=== PATIENT | female | born 1995 | race Caucasian/White ===

== ENCOUNTER 2025-06-27 21:19 | Emergency (ER) | payer MEDICAID, SELFPAY ==
--- OUTSIDE RECORDS SUMMARY | 2024-09-06 08:40 | XMS_ITS ---
Author Organization [facility] Address [address] [place] [address] Care Team Providers Care Head Sampler Name Role Phone PCP, Does Not Have a Primary Care Provider Taisha Hurt Unavailable [phone] ALLERGIES No Known Allergies RESULTS Component Value Reference Range Notes Hepatitis Acute Panel - NSLI J Reviewed date:09/09/2024 01:49:03 PM Interpretation:Negative Performing Lab:[facility], [address] [place] [address], Director - [facility] Discharge Coordinator: Devaughn Donovan MD Notes/Report: Hep B Surface Ag Nonreactive Nonreactive Hepatitis A Ab IgM Nonreactive Nonreactive HCV S/CO Ratio 0.08 0.00-0.79 S/CO HCV Interpretation Nonreactive Nonreactive S/CO Ratio Interpretation 0.00 - 0.79 Non-Reactive 0.80 - 0.99 Equivocal >= 1.00 Reactive Non-Reactive: Antibodies to HCV were not detected; does not exclude the possibility of recent exposure to HCV. No further action is needed unless recent infection is expected. Equivocal: Antibodies to HCV may or may not be present. HCV RNA testing will follow to identify current infection. Reactive: Presumptive evidence of antibodies to HCV. HCV RNA testing will follow to identify current infection. Hepatitis B Core IgM Antibodies Nonreactive Nonreactive A = Abnormal, H = High, HH = Critical High, L = Low, LL = Critical Low HIV AG/AB SCREEN BY CMIA - N LUDMILAIJ Reviewed date:09/09/2024 01:48:59 PM Interpretation:Negative Performing Lab:[facility], [address] [place] [address], Director - [facility] Discharge Coordinator: Devaughn Donovan MD Notes/Report: HIV 1,2 AG/AB by CMIA Nonreactive Nonreactive Nonreactive: HIV-1 p24 antigen and HIV-1/HIV-2 antibodies were not detected. Nonreactive results may be due to antigen and/or antibody levels that are below the limit of detection of this assay. Reactive: Presumptive evidence of HIV-1 p24 antigen and/or HIV-1/HIV-2 antibodies. This is a preliminary result. Further confirmatory testing according to the [facility] HIV testing algorithm will follow, and such confirmatory results must be considered in making a diagnosis related to HIV infection. Further HIV tests include HIV-1/HIV-2 antibody differentiation immunoassay and subsequent nucleic acid testing if needed. This result should be interpreted in conjunction with the patient?s clinical presentation, history, and other laboratory results. If the result is inconsistent with clinical evidence, additional testing is suggested to confirm the result. A = Abnormal, H = High, HH = Critical High, L = Low, LL = Critical Low SYPH TITER Reviewed date:09/09/2024 01:48:54 PM Interpretation:Negative Performing Lab:[facility], [address] [place] [address], Director - [facility] Discharge Coordinator: Devaughn Donovan MD Notes/Report: RPR Monitor Test <1:1 <1:1 RPR titer of <1:1 is nonreactive. This test is recommended for monitoring treatment response in individuals with established syphilis. It is also useful for diagnosis of congenital syphilis in neonates born to mothers with syphilis infection. A = Abnormal, H = High, HH = Critical High, L = Low, LL = Critical Low VAGCTNG Reviewed date:09/09/2024 01:48:43 PM Interpretation:Negative Performing Lab:[facility], [address] [place] [address], Director - [facility] Discharge Coordinator: Devaughn Donovan MD Notes/Report: Bacterial vaginosis Not Detected Not Detected Liz species Not Detected Not Detected Liz glabrata Not Detected Not Detected Trichomonas vaginalis Not Detected Not Detected The Va ginitis Panel by NAAT assay utilizes casserole preparer medicated amplification (TMA) for the detection of ribosomal RNA from microorganisms associated with bacterial vaginosis (BV), Liz glabrata, Liz species, and Trichomonas vaginalis. For BV, the assay detects levels of Lactobacillus, Gardnerella vaginalis, and Atopobium vaginae, and qualitatively reports the detection of bacteria vaginosis. For Liz, the assay detects and differentiates between C. glabrata and other Liz species (C. albicans, C. parapsilosis, C. dubliniensis, C. tropicalis). This assay is intended to aid in the diagnosis of vaginosis and/or vaginitis, caused by the targeted microorganisms, and should be interpreted in conjunction with the patient?s other relevant clinical data. Performance has not been evaluated in individuals less than 14 years of age. Chlamydia Amplification Result Not Detected Not Detected The Mieplegic Aptima Combo2 assay on [place] system screens for the presence of Chlamydia trachomatis rRNA using casserole preparer mediated amplification. A Not Detected result does not preclude the possibility of an infection with C. trachomatis. If results are indeterminate, please submit a new specimen. This assay is not intended for the evaluation of suspected sexual abuse or for other medico-legal reasons. The performance of this test has not been evaluated in patients <14 years of age GC Amplification Result Not Detected Not Detected The Mieplegic Aptima Combo2 assay on [place] system screens for the presence of Neisseria gonorrhoeae rRNA using casserole preparer mediated amplification. A Not Detected result does not preclude the possibility of an infection with N. gonorrhoeae. If results are indeterminate, please submit a new specimen. This assay is not intended for the evaluation of suspected sexual abuse or for other medico-legal reasons. The performance of this test has not been evaluated in patients <14 years of age. A = Abnormal, H = High, HH = Critical High, L = Low, LL = Critical Low REASON FOR VISIT OTHER, POSSIBLE STD EXPOSURE, SUMMER WAS + FOR CHALYMDIA MEDICATIONS Medication SIG (Take, Route, Frequency, Duration) Notes Start Date End Date Status Fluoxetine Active VITAL SIGNS Temperature 97.6 degrees Fahrenheit 09/07/19 25 Heart Rate 86 /min 09/06/2024 Blood pressure systolic 106 mm Hg 09/07/19 25 Blood pressure diastolic 78 mm Hg 025 Respiratory Rate 16 /min 09/06/2024 Oximetry 97 % 09/06/2024 Height 5ft in 09/06/2024 Weight 110 lbs 09/06/2024 BMI 21.48 kg/m2 09/06/2024 PROCEDURES Procedure Date Ordered Date Performed Result Body Sit e Venipuncture 09/06/2024 09/06/2024 N/A Encounters Encounter Location Date Provider Diagnosis [facility] - [address] [address] 09/06/2024 Taisha Payne Sexually transmitted disease exposure Z20.2 ASSESSMENTS Encounter Date Diagnosis Assessment Notes Treatment Notes Treatment Clinical Notes Section Notes 09/06/2024 Sexually transmitted disease exposure (ICD-10 - Z20.2) Patinet was offered Ceftriaxone injection, declines at this time, discussed benefits vs risk, unsue if there was a true exposure, wants to wait, discussed abstinence for 4 weeks, if this test negative then should do a repeat in 2 weeks. If symptoms please return for treatment. PLAN OF TREATMENT No Information Procedure Notes * Category Sub-Category Detail Notes GH - Venipuncture Venipuncture: 21 g butterfly placed at , Left , AC , number of attempts: 1 , lab [facility] to [facility] , Blood was drawn using standard precautions/technique to ensure cleanliness and hemostasis acheived with temporary pressure dressing/bandaid , patient tolerated procedure well and denies any other complaints Consent: Verbal consent obtai cyndy Performed By: SHANT URENA MA Patient Disposition: Patient tolerated p rocedure well Progress Notes * Examination Category Sub-Category Detail Notes Category Not es [facility] Exams GENERAL: no acute distres s, well developed, well nourished, afebrile, LUNGS: No respiratory distr ess GENITOURINARY: , Offered exam, cadence ent declined, self swabbed PSYCHIATRIC: Interactive, convers ant, Affect normal, alert and oriented SKIN no rash on visible s kin History and Physical Notes * HPI (History of Present Illness) Category Sub-Category Detail Notes Category Not es STD-Concern reason for visit possible STD ex posure, partner tested positive for Gonorrhea but usnure if there was exposure. Prior STD chlamydia in the sum ammy Number of sexual contacts multiple 2 mal es, using condoms Condom use admits intermittent use HIV status in the fall Sexual contact portal heterosexual, daniel dave
--- OUTSIDE RECORDS SUMMARY | 2024-09-09 08:47 | XMS_ITS ---
Author Organization [facility] Address [address] [place] [address] Care Team Providers Care Wire Insulator Name Role Phone PCP, Does Not Have a Primary Care Provider Unava ilNereyda Junior Unavailable [phone] REASON FOR VISIT cc/results Encounters Encounter Location Date Provider Diagnosis [facility] [address] [place] [address] 09/09/2024 Nereyda Arce PLAN OF TREATMENT No Information
[2025-06-27 21:28] VITALS: BP 97/66; PULSE 94; RESP 18; TEMP 36.6; O2SAT 98; BMI 20.9
[2025-06-27 21:46] LABS: MANUAL DIFF FLAG NO
[2025-06-27 21:52] LABS: Hematocrit 43.7 % (37.0-47.0); Hemoglobin 14.1 g/dl (12.0-16.0); Imm Gran Abs Auto 0.06 X10*3/uL (0.00-0.03); Imm Gran Pct Auto 0.4 % (0.0-0.4); Lymphocytes Absolute Auto 1.7 X10*3/uL (1.2-4.9); Mean Corpuscular HGB Conc 32.3 g/dl (31.0-35.0); Mean Corpuscular Hemoglobin 27.0 pg (27.0-33.0); Mean Corpuscular Volume 83.7 fL (80.0-98.0); NRBC Abs Auto 0.000 X10*3/uL (0.0-0.012); NRBC Pct Auto 0.0 /100WBC (0.0-0.2); Platelet Count 374 X10*3/uL (160-400); Red Blood Count 5.22 X10*6/uL (4.20-5.50); White Blood Count 15.0 X10*3/uL (4.8-10.8)
[2025-06-27 22:00] LABS: Anion Gap 17 (12-20); Blood Urea Nitrogen 14 mg/dL (9-16); Calcium 9.5 mg/dL (8.4-10.2); Carbon Dioxide 20 mmol/L (22-29); Chloride 104 mmol/L (96-108); Creatinine Clr Calc Pharmacy 71.6; Estimated Glomerular Filt Rate > 60; Potassium 3.3 mmol/L (3.3-5.1); Sodium 138 mmol/L (135-145)
[2025-06-27 22:24] LABS: Resp Syncy Virus RNA Qual PCR NEGATIVE (Negative); SARS COV2 PCR INHOUSE NEGATIVE (Negative)
[2025-06-27 23:28] VITALS: BP 107/69; PULSE 94; RESP 16; TEMP 36.9; O2SAT 99
--- NOTE | 2025-06-27 23:32 | ED.NAVMDI ---
HPI - Nausea/Vomiting/Diarrhea General Chief complaint: Nausea/Vomiting/Diarrhea Stated complaint: N/V Time Seen by Provider: 06/27/25 23:30 History of Present Illness ED Provider: jae HPI Narrative: It's a 30-year-old female who takes two psychiatric medications. She comes in with an abrupt onset of: Nausea Vomiting Diarrhea (no blood in the stool or vomit) Generalized abdominal cramping no underlying IBS, inflammatory bowel disease described. No focal right lower quadrant or right upper quadrant pain. No non-biliary stones. MD elicited complaint: nausea Related Data Previous Rx's ?Medication ?Instructions ?Recorded dicyclomine 10 mg capsule 10 mg PO TID #7 caps 06/28/25 ondansetron 4 mg disintegrating 4 mg PO Q8H PRN nausea and 06/28/25 tablet vomiting #7 tabs Allergies Allergy/AdvReac Type Severity Reaction Status Date / Time No Known Allergies Allergy Verified 06/27/25 21:31 PMFSH Social History Social History Smoked in Last 30 Days: No Use of substances other than those prescribed or required for medical reasons: No Advance Directives: No Do you have a plan to hurt others: No Plan Patient : No Physical Exam Exam: Exam: EXAM: Gen: Alert, awake, well appearing, well hydrated. Head: Atraumatic Eyes: Anicteric, Normal conjunctiva. ENT: Moist mucosa, no pallor. Neck: Supple. Respiratory: Breathing comfortably, No distress.Clear to auscultation bilaterally, symmetric chest expansion, No wheeze, rales, ronchi. Cardiovascular: Regular rate and rhythm. No murmurs or rub. Well perfused periphery, warm extremities. No edema. Abdominal: Soft, no objective distension. No palpable masses or obvious organomegaly. No focal tenderness, no guarding, no rebound tenderness or other peritoneal findings. : No flank tenderness. Neuro: Alert. Gross movement of all extremities intact. Vital signs: See flowsheet Vital Signs: Vital Signs: Last Vital Signs Temp 98.4 F 06/28/25 01:04 Pulse 94 06/28/25 01:04 Resp 16 06/28/25 01:04 BP 107/69 06/28/25 01:04 Pulse Ox 99 06/28/25 01:04 O2 Del Method Room Air 06/28/25 01:04 BMI result Body Mass Index 20.9 Medications Administered Discontinued Medications Generic Name Dose Route Start Last Admin Trade Name Juanq PRN Reason Stop Dose Admin Dicyclomine HCl 10 mg 06/28/25 00:20 06/28/25 00:30 Dicyclomine Hcl 10 Mg Capsule PO 06/28/25 00:21 10 mg ONCE ONE Administration Famotidine 20 mg 06/27/25 23:36 06/27/25 23:55 Famotidine/Pf 20 Mg/2 Ml Vial IVPUSH 06/27/25 23:37 20 mg ONCE ONE Administration Sodium Chloride 1,000 mls @ 999 mls/hr 06/27/25 23:45 06/28/25 00:46 Ns IV 06/28/25 00:45 Infused .Q1H1M NANCY Infusion Loperamide HCl 2 mg 06/28/25 00:20 06/28/25 00:30 Loperamide Hcl 2 Mg Capsule PO 06/28/25 00:21 2 mg ONCE ONE Administration Ondansetron HCl 4 mg 06/27/25 23:36 06/27/25 23:55 Ondansetron Hcl 4 Mg/2 Ml Vial IVPUSH 06/27/25 23:37 4 mg ONCE ONE Administration Procedures Ultrasound ED POC Ultrasound: EMERGENCY ULTRASOUND? INTERPRETATION-Limited Abdominal (Biliary)? The study reveals: Impression: NO OF ACUTE BILIARY PATHOLOGY Indication: ABDOMINAL PAIN? Gallbladder: No stones? Anterior Gallbladder Wall: <4mm, No pericholecystic fluid or edema. CBD: NO EVIDENCE OF OBSTRUCTION/DILATION OR VISUALIZED STONE Performed by: Date:Time: CPT: 78664; Reference Codes? https://bit.ly/073d0zA] Medical Decision Making Medical Decision Making MDM Narrative: 30-year-old female with GI symptoms as above, paired, awake, alert, oriented, hemodynamically stable,, no focal tenderness to suggest appendicitis or biliary colic. Yzbcc-li-uqoy ultrasound in the right upper quadrant shows no signs of gallstones or colostestitis. Patient was hydrated, symptomatic relief in the ED appeared. Discharge with Dicyclamine and Antiemetics. PRN Imodium Lab Data [facility] Lab Attestation statement: I reviewed the patient's lab results. 06/27/25 21:42 06/27/25 21:42 Labs: Lab Results 06/27/25 Range/Units 21:42 WBC 15.0 H (4.8-10.8) X10*3/uL RBC 5.22 (4.20-5.50) X10*6/uL Hgb 14.1 (12.0-16.0) g/dl Hct 43.7 (37.0-47.0) % MCV 83.7 (80.0-98.0) fL MCH 27.0 (27.0-33.0) pg MCHC 32.3 (31.0-35.0) g/dl RDW 13.9 (11.0-16.0) % Plt Count 374 (160-400) X10*3/uL MPV 9.9 (9.4-12.3) fL Immature Gran % (Auto) 0.4 (0.0-0.4) % Neut % (Auto) 82.7 H (45-73) % Lymph % (Auto) 11.2 L (20-40) % [place] % (Auto) 4.5 (2-11) % Eos % (Auto) 0.5 (0-4) % Baso % (Auto) 0.7 (0-2) % Lymph # (Auto) 1.7 (1.2-4.9) X10*3/uL [place] # (Auto) 0.7 (0.1-1.2) X10*3/uL Eos # (Auto) 0.1 (0.0-0.4) X10*3/uL Baso # (Auto) 0.1 (0.0-0.2) X10*3/uL Abs Immat Gran (auto) 0.06 H (0.00-0.03) X10*3/uL Absolute Neuts (auto) 12.4 H (2.0-8.3) x10*3/uL Absolute Nucleated RBC 0.000 (0.0-0.012) X10*3/uL Nucleated RBC % (auto) 0.0 (0.0-0.2) /100WBC Sodium 138 (135-145) mmol/L Potassium 3.3 (3.3-5.1) mmol/L Chloride 104 (96-108) mmol/L Carbon Dioxide 20 L (22-29) mmol/L Anion Gap 17 (12-20) BUN 14 (9-16) mg/dL Creatinine 0.84 (0.5-1.4) mg/dL Estim Creat Clear Calc 71.6 Estimated GFR > 60 Random Glucose 121 H (60-115) mg/dL Calcium 9.5 (8.4-10.2) mg/dL Total Bilirubin 0.4 (0.0-1.0) mg/dL Direct Bilirubin 0.1 (0.0-0.5) mg/dL AST 30 (5-31) U/L ALT 12 (0-31) U/L Alkaline Phosphatase 63 (39-117) U/L Total Protein 7.9 (6.5-8.0) g/dL Albumin 4.6 (3.5-5.0) g/dL Lipase 22 (8-78) U/L Influenza Type A (PCR) NEGATIVE (Negative) Influenza Type B (PCR) NEGATIVE (Negative) RSV RNA Qual (PCR) NEGATIVE (Negative) SARS-CoV-2 RNA (RT-PCR) NEGATIVE (Negative) Discharge Plan Discharge Clinical Impression: Gastroenteritis Patient Disposition: Home, Self-Care Instructions: Acute Nausea and Vomiting (DC) Additional Instructions: DISCHARGE DIAGNOSES: Nausea vomiting and diarrhea abrupt onset unclear cause HISTORY OF PRESENTATION: ?Nausea vomiting diarrhea EMERGENCY DEPARTMENT COURSE,TESTS, TREATMENTS: While in the ED today you had intravenous fluids lab work including kidney function liver function electrolytes blood counts all normal you received intravenous Zofran nausea medication and famotidine and antacid medication DISCHARGE MEDICATIONS: ?We have prescribed Zofran nausea medicine to be taken as needed for nausea. We have also prescribed Bentyl medication for abdominal spasm and cramp pain to be taken as needed. You can take [id number] Imodium and famotidine. FOLLOW-UP: ?Call your primary or general physician soon as possible to discuss your symptoms, your ED visit and to discuss follow up plans INSTRUCTIONS ?& RETURN PRECAUTIONS: If any symptoms change first call your primary physician, if it is after-hours your primary doctors office should have a provider distribution spec you can speak with. If the symptoms are severe or very concerning to you then call 911 or return to the ED. Rakan Terry MD Emergency Physician [facility] Prescriptions: New ondansetron 4 mg tablet,disintegrating 4 mg PO Q8H PRN (Reason: nausea and vomiting) Qty: 7 0RF dicyclomine 10 mg capsule 10 mg PO TID Qty: 7 0RF Interventions: ED Discharge Assessment Last Done: 06/28/25 01:04 Discharge Date/Time: 06/28/25 01:04 Print Language: Gibraltarian
[2025-06-27 23:47] LABS: Alanine Aminotransferase 12 U/L (0-31); Albumin Level 4.6 g/dL (3.5-5.0); Alkaline Phosphatase 63 U/L (39-117); Aspartate Amino Transferase 30 U/L (5-31); Lipase 22 U/L (8-78); Total Protein 7.9 g/dL (6.5-8.0)
--- OUTSIDE RECORDS SUMMARY | 2025-06-28 00:03 | XMS_ITS | Clinical Summary ---
Author Organization [facility] Address [address] [place] [phone] Phone Care Team Providers Care Rate Marker Name Role Phone Unavailable Primary Care Provider Unavailabl e Allergies No known active allergies Medications levonorgestrel- ethinyl estradiol 0.1-20 MG-MCG per tablet 12/11/2017 Active FLUoxetine 10 MG capsuleIndicati ons:Mild single current episode of major depressive disorder Take 1 capsule (10 mg total) by mouth every morning. 90 capsule 1 03/06/2018 Active FLUoxetine 20 MG capsuleIndicati ons:Mild single current episode of major depressive disorder Take 1 capsule (20 mg total) by mouth every morning. 90 capsule 1 03/06/2018 Active Active Problems Problem Noted Date Diagnosed Date Acne vulgaris 07/15/2017 Overview (07/15/2017): Uses tretinoin 0.025% cream and clinda/BP gel 1%/5% Menorrhagia with regular cycle 07/15/2017 Overview (07/15/2017): On OCPs with good control Depression 12/17/2016 Overview (01/03/2018): Noted first in May 2016 at [facility]...started prozac and told parents finally in October 2016...then started contacting me more regularly; refusing therapy; two semesters abroad in 2017-18[place] and [place]. Using prozac 30 mg Immunizations Immunization Administration Dates Next Due DTP 09/30/1998, 8,1997,04/18 DTaP 5 03/08/2002 HPV, Quadrivalent 08/31/2011,04/09/2011,01/30/20 11 Hep A, ped/adol 02/27/2014,01/29/2011 Hep B, ped/adol 1997,1997,1997 Hib (PRP-T) 05/23/1998, 8,1997,04/18 IPV 03/08/2002 Influenza, injectable, quadr ivalent, preservative free 07/15/2017,03/05/2016,02/28/2015 Influenza, injectable, trivalent 03/14/2009,06/03 MMR 03/08/2002,1998 Meningococcal B Trumenba 07/15/2017 Meningococcal Conj (Menactra) MCV4P 12/25/2014,0 08/26/2008 OPV 1997,1997,1997 Tdap 08/26/2008 Varicella 08/26/2008,05/23/1998 Family History Medical History Relation Name Comments Allergies Father bees Hyperlipidemia Father Thyroid disease Father Anemia Mother Cintia No Known Problems Sister Relation Name Status Comments Father Alive Maternal Grandfather Materna l grandfather: Cancer - skin , lung Mother Cintia Alive Other No family histo ry of Thrombophilia Paternal Grandmother Paterna l aunt: Cancer, ovarian, Seizure disorder Sister Alive Social History Tobacco Use Types Packs/Day Years Used Date Smoking Tobacco: Never Smokeless Tobacco: Never Comments:Never smoker Alcohol Use Standard Drinks/Week Comments Yes 0 (1 standard drink = 0.6 oz pur e alcohol) occ drinks a bunch Comments Unknown Sex and Gender Information Value Date Recorded Sex Assigned at Not on file Legal Sex Female 5:25 PM EDT Gender Identity Not on file Sexual Orientation Not on file Last Filed Vital Signs Vital Sign Reading Time Taken Comments Blood Pressure 99/68 01/03/2018 2:25 PM EDT Pulse 90 01/03/2018 2:25 PM EDT Temperature 36.8 C (98.2 F) 10/15/2016 12:00 AM EDT Respiratory Rate - - Oxygen Saturation - - Inhaled Oxygen Concentration - - Weight 47.5 kg (104 lb 12.8 oz) 01/03/2018 2:25 PM EDT Height 154.9 cm (5' 1 ) 07/15/2017 2:22 PM EST Body Mass Index 19.8 07/15/2017 2:22 PM EST Plan of Treatment Health Maintenance Due Date Last Done Comments Men B Vaccine (2 of 2 - Trumenba SCDM 2-dose series) 01/12/2018 07/15/2017 DTaP,Tdap,and Td Vaccines (7 - Td or Tdap) 08/26/2018 08/26/2008, 03/08/2002, 09/30/1998, Additional history exists Influenza Vaccines (#1) 2025 07/15/19 18, 03/05/2016, 02/28/2015, Additional history exists COVID-19 Vaccine ( season) 2025 Hepatitis B Vaccines Completed 1997, 1997, 1997 HIB Vaccines Completed 05/23/1998, 09/01, 1997, Additional history exists IPV Vaccines Completed 03/08/2002, 09/01, 1997, Additional history exists MMR Vaccines Completed 03/08/2002, 1998 Varicella Vaccines Completed 08/26/2008, 05/23/1998 HPV Vaccines Completed 08/31/2011, 01/2011, 01/29/2011 Hepatitis A Vaccines Completed 02/27/2014, 01/30/20 11 Meningococcal Vaccine Completed 12/25/2014, 009 Pneumococcal Vaccine Aged Out No long er eligible based on patient's age to complete this topic
--- OUTSIDE RECORDS SUMMARY | 2025-06-28 00:03 | XMS_ITS | Patient Health Record ---
Author Organization [facility] Address [address] [place] [address] Care Team Providers Care Digester Hand Name Role Phone PCP, Does Not Have a Primary Care Provider Unasegundo thorntonTaisha Zhang Unavailable [phone] Nereyda Arce Unavailable [phone] ALLERGIES No Known Allergies RESULTS Component Value Reference Range Notes Hepatitis Acute Panel - NSLI J Reviewed date:09/09/2024 01:49:03 PM Interpretation:Negative Performing Lab:[facility], [address] [place] [address], Director - [facility] Aircraft Detail Draftsperson: Devaughn Donovan MD Notes/Report: Hep B Surface [...] LUDMILAIJ Reviewed date:09/09/2024 01:48:59 PM Interpretation:Negative Performing Lab:[facility] [employer] [facility], [address] [place] [id number], Director - [facility] Aircraft Detail Draftsperson: Devaughn Donovan MD Notes/Report: HIV 1,2 AG/AB by CMIA Nonreactive Nonreactive Nonreactive: HIV-1 p24 antigen and HIV-1/HIV-2 antibodies were not detected. Nonreactive results may be due to antigen and/or antibody levels that are below the limit of detection of this assay. Reactive: Presumptive evidence of HIV-1 p24 antigen and/or HIV-1/HIV-2 antibodies. This is a preliminary result. Further confirmatory testing according to the [facility] HIV testing algorithm will follow, and such [...] TITER Reviewed date:09/09/2024 01:48:54 PM Interpretation:Negative Performing Lab:[facility] [facility], [address] [place] [address], Director - [facility] Director: Devaughn Donovan MD Notes/Report: RPR Monitor Test [...] VAGCTNG Reviewed date:09/09/2024 01:48:43 PM Interpretation:Negative Performing Lab:[facility] [facility], [address] [place] [address], Director - [facility] Aircraft Detail Draftsperson: Devaughn Donovan MD Notes/Report: Bacterial vaginosis Not Detected Not Detected Liz species Not Detected Not Detected Liz glabrata Not Detected Not Detected Trichomonas vaginalis Not Detected Not Detected The [place] ginitis Panel by NAAT assay utilizes landman medicated amplification (TMA) for the detection of [...] Amplification Result Not Detected Not Detected The [employer] Aptima Combo2 assay on [employer] system screens for the presence of Chlamydia trachomatis rRNA using landman mediated amplification. A Not Detected result does [...] Amplification Result Not Detected Not Detected The [employer] Aptima Combo2 assay on [employer] system screens for the presence of Neisseria gonorrhoeae rRNA using landman mediated amplification. A Not Detected result does [...] Low, LL = Critical Low REASON FOR REFERRAL No Information MEDICATIONS Medication SIG (Take, Route, Frequency, Duration) Notes Start Date End Date Status Fluoxetine Active VITAL SIGNS Heart Rate 86 /min 09/06/2024 Temperature 97.6 degrees Fahrenheit 09/06/2024 Respiratory Rate 16 /min 09/06/2024 Oximetry 97 % 09/06/2024 Blood pressure diastolic 78 mm Hg 09/06/2024 Height 5ft in 09/06/2024 Blood pressure systolic 106 mm Hg 09/06/2024 Weight 110 lbs 09/06/2024 BMI 21.48 kg/m2 09/06/2024 PROCEDURES Procedure Date Ordered Date Performed Result Body Sit e Venipuncture 09/06/2024 09/06/2024 N/A Encounters Encounter Location Date Provider Diagnosis [facility] [address] [place] [address] 09/06/2024 Taisha Payne Sexually transmitted disease exposure Z20.2 [facility] [address] [place] [address] 09/09/2024 Nereyda Arce ASSESSMENTS Encounter Date Diagnosis Assessment Notes Treatment [...] for treatment. PLAN OF TREATMENT No Information Insurance Providers Payer Name Payer Address Payer Phone Subscriber Number Group Number Insured Name Patient Relationship to Insured Coverage Start Date Coverage End Date [facility] [address] [place] [address] [id number] SAMUEL VALLE Self - patient is the insured MEDICAL (GENERAL) HISTORY Medical History History ICD Code aniexty depression
--- OUTSIDE RECORDS SUMMARY | 2025-06-28 00:03 | XMS_ITS | Continuity of Care Document ---
Author Organization [facility] Providers, [facility] Address [address] [place] [address] Care Team Providers Care Vault Installer Name Role Phone RAISSA DUMAS Primary Care Provider Assessment No assessment recorded. Plan of Treatment Reminders Order Date Submit Date Provider Last Modified By Organization Details Last Modified Time Details Appointments None recorded. Lab CBC w/ auto diff 2024 ENID [facility]anion [facility], [address] [place] [address], [place], [address], 13:56:18 ferritin, serum or plasma 2024 025 [facility], [address] [place] [address], [place], [address], 13:56:19 iron + total iron-bindin g capacity (TIBC), serum 2024 025 [facility], [address], [facility], [place], [address], 13:56:19 hepatitis C Ab, signal-to-c utoff, serum or plasma 2024 025 [facility], [address], [facility], [place], [address], 13:56:13 HIV 1+2 AB + HIV 1 p24 Ag, qualitative immunoassay , serum 2024 [facility], [address], [place], [address], 13:56:20 CT + NG RNA, PCR, unspecified specimen 2024 [facility], [address] [place] [address], [place], [address], 13:56:21 unlisted lab - trichomonas vaginalis 2024 [facility], [address] [place] [address], [place], [address], 13:56:21 treponema pallidum igg+igm Ab, serum 2024 [facility], [address] [place] [address], [place], [address], 13:56:14 HBsAg (hepatitis B surface Ag), serum 2024 [facility], [address] [place] [address], [place], [address], 13:56:14 CMP, serum or plasma 2024 [facility], [address] [place] [address], [place], [address], 13:56:15 hemoglobin A1C/hemoglo bin total, QN, blood 2024 [facility], [address] [place] [address], [place], [address], 13:56:15 lipid panel, blood 2024 [facility], [address] [place] [address], [facility], [place], [address], 13:56:16 hepatitis B surface Ab, qualitative , serum 2024 [facility], [address] [place] [address], [place], [address], 13:56:17 TSH, serum or plasma 2024 [facility], [address] [place] [address], [place], [address], 13:56:17 hepatitis B core Ab, total, serum 2024 [facility], [address] [place] [address], [place], [address], 13:56:18 Referral None recorded. Procedures None recorded. Surgeries None recorded. Imaging None recorded. Medication Orders fluoxetine 40 mg capsule 2024 [facility], [address] [place] [address], [address], 13:56:28 Patient TargetsNo targets recorded. Patient InstructionsNo instructions recorded. Reason for Referral None Reported. Results Created Date Observation Date Name Description Value Unit Range Abnormal Flag Note LastModifiedBy Organization Detail LastModifiedTime 04/08/2004/09/2025 HEPAT ITIS C AB HCV S/co ratio 0.06 S/co 0.00-0 .79 normal Not Available [address], [place], [address], 04/10/2025 13:56:13 04/08/2004/09/2025 HEPAT ITIS C AB HCV interpretati on NONREA CTIVE nonrea ctive normal S/CO Ratio Inter preta tion 0.00 - 0.79 Non-R eacti ve 0.80 - 0.99 Equiv ocal >= 1.00 React gillian Non-R eacti ve: Antib odies to HCV were not detec betzaida; does not exclu de the possi bilit y of recen t expos ure to HCV. No furth er actio n is neede d unles s recen t infec tion is expec betzaida. Equiv ocal: Antib odies to HCV may or may not be prese nt. HCV RNA testi ng will follo w to ident lucy curre nt infec tion. React gillian: Presu mptiv e evide nce of antib odies to HCV. HCV RNA testi ng will follo w to ident lucy curre nt infec tion. Not Available [address], [address], 04/10/2025 13:56:13 04/08/2004/09/2025 HEP B SURFA CE ANTIG EN hep B surface Ag NONREA CTIVE nonrea ctive normal Not Available [address], [address], 04/10/2025 13:56:14 04/08/2004/09/2025 SYPHI LIS SCREE N treponema pallidum Ab clia NEGATI VE negati ve normal This is the recom aaron d initi al scree vicente test for syphi lis follo wing the rever se-se quenc e algor ithm. Negat gillian: No serol ogic evide nce of Trepo nema palli dum antib odies . No follo w-up is neces viri unles s clini juventino indic ated (e.g. , incub ating or early prima ry infec tion) . Posit gillian: Detec table prese nce of Trepo nema palli dum antib odies . Addit ional testi ng accor ding to the rever se-se quenc e syphi lis scree vicente algor ithm will follo w and must be consi dered befor e la g a final diagn osis. This inclu mervat a nontr epone mal antib caro test (i.e. , RPR with refle x to RPR titer if react gillian). React gillian RPR indic ates serol ogic evide nce of new, inade quate ly treat ed, or persi stent syphi lis infec tion. If RPR is non-r eacti ve, a secon d trepo nemal antib caro test will be perfo rmed. Not Available [address], [address], 04/10/2025 13:56:14 04/08/20 25 04/09/2025 COMPR EHENS GILLIAN METAB OLIC PANEL sodium 138 mmol/ L 135-14 5 normal Not Available [address], [address], 04/10/2025 13:56:15 04/08/20 25 04/09/2025 COMPR EHENS GILLIAN METAB OLIC PANEL potassium 4.5 mmol/ L 3.5-5. 3 normal Not Available [address], [address], 04/10/2025 13:56:15 04/08/20 25 04/09/2025 COMPR EHENS GILLIAN METAB OLIC PANEL chloride 104 mmol/ L 96-108 normal Not Available [address], [address], 04/10/2025 13:56:15 04/08/20 25 04/09/2025 COMPR EHENS GILLIAN METAB OLIC PANEL CO2 20 mmol/ L 22-31 low Not Available [address], [address], 04/10/2025 13:56:15 04/08/20 25 04/09/2025 COMPR EHENS GILLIAN METAB OLIC PANEL anion gap 14 mmol/ L 5-17 normal Not Available [address], [address], 04/10/2025 13:56:15 04/08/20 04/09/2025 COMPR EHENS GILLIAN METAB OLIC PANEL glucose 83 mg/dL 70-99 normal Not Available [address], [address], 04/10/2025 13:56:15 04/08/20 25 04/09/2025 COMPR EHENS GILLIAN METAB OLIC PANEL BUN 10 mg/dL 7-23 normal Not Available [address], [place], [address], 04/10/2025 13:56:15 04/08/20 25 04/09/2025 COMPR EHENS GILLIAN METAB OLIC PANEL creatinine 0.87 mg/dL 0.50-1 .30 normal Not Available [address], [place], [address], 04/10/2025 13:56:15 04/08/20 25 04/09/2025 COMPR EHENS GILLIAN METAB OLIC PANEL calcium 8.9 mg/dL 8.4-10 .5 normal Not Available [address], [address], 04/10/2025 13:56:15 04/08/20 25 04/09/2025 COMPR EHENS GILLIAN METAB OLIC PANEL total protein 7.0 g/dL 6.0-8. 3 normal Not Available [address], [address], 04/10/2025 13:56:15 04/08/20 25 04/09/2025 COMPR EHENS GILLIAN METAB OLIC PANEL albumin 4.1 g/dL 3.3-5. 0 normal Not Available [address], [address], 04/10/2025 13:56:15 04/08/20 25 04/09/2025 COMPR EHENS GILLIAN METAB OLIC PANEL total bilirubin 0.4 mg/dL 0.2-1. 2 normal Not Available [address], [place], [address], 04/10/2025 13:56:15 04/08/2004/09/2025 COMPR EHENS GILLIAN METAB OLIC PANEL AST (SGOT) 23 U/L 10-35 normal Not Available [address], [address], 04/10/2025 13:56:15 04/08/20 25 04/09/2025 COMPR EHENS GILLIAN METAB OLIC PANEL ALT (SGPT) 8 U/L 10-40 low Not Available [address], [place], [address], 04/10/2025 13:56:15 04/08/20 25 04/09/2025 COMPR EHENS GILLIAN METAB OLIC PANEL alk phos 58 U/L 40-120 normal Not Available [address], [place], [address], 04/10/2025 13:56:15 04/08/2004/09/2025 COMPR EHENS GILLIAN METAB OLIC PANEL eGFR 93 mL/mi n/1.7 3m2 >=60 normal The estim ated glome rular filtr ation rate (eGFR ) calcu latio n is based on the 2020 CKD-E PI creat inine equat ion, which is valid ated in male and femal e popul ation 18 years of age and older (N Engl J Med 2020; 385:1 737-1 749). Not Available [address], [address], 04/10/2025 13:56:15 04/08/20 25 04/09/2025 HEMOG LOBIN A1C HGB A1C 5.4 % 4.0-5. 6 normal Metho d: Immun oassa y Refer ence Range 4.0-5 .6% High risk (pred iabet ic) 5.7-6 .4% Diabe tic, diagn ostic >=6.5 % ADA diabe tic treat ment goal <7.0% The Hemog lobin A1c testi ng is NGSP- certi fied. Refer ence range s are based upon the 2009 recom menda tions of the Ameri can Diabe melo Assoc iatio n. Inter preta tion may vary for child bernard and adole scent s. Not Available [address] [facility], [place], [address], 04/10/2025 13:56:15 04/08/2004/09/2025 HEMOG LOBIN A1C estimated average glucose 108 mg/dL 68-114 normal The Estim ated High View ge Gluco se (eAG) or Mean Plasm a Gluco se (MPG) value is calcu lated from the hemog lobin A1c value and cover s the same time perio d. The Ameri can Diabe melo Assoc iatio n (ADA) and other profe ssion al organ izati ons recom mend repor ting the eAG with the HgbA1 c. Not Available [address], [place], [address], 04/10/2025 13:56:15 04/08/2004/09/2025 LIPID PROFI LE cholesterol 219 mg/dL <=199 high Inter preti ve Comme nt: Optim al Daysi ntrat ion: <200 mg/dL (for adult s) ; <170 mg/dL (for child benrard) Not Available [address] [facility], [place], [address], 04/10/2025 13:56:16 04/08/2004/09/2025 LIPID PROFI LE HDL cholesterol 53 mg/dL >=51 normal Inter preti ve Comme nt: HDL zaynab stero l less than 40 mg/dL in men and less than 50 mg/dL in women is a risk facto r for cardi ovasc ular disea se Not Available [address] [place], [address], 04/10/2025 13:56:16 04/08/2004/09/2025 LIPID PROFI LE triglyceride s 155 mg/dL <=149 high Inter preti ve Comme nt: Optim al Daysi ntrat ion: <150 mg/dL (for adult s) ; < 90 mg/dL (for child bernard) Trigl yceri de daysi ntrat ion can be influ enced when measu red in the non-f astin g state . Not Available [facility] [address] [place], [address], 04/10/2025 13:56:16 04/08/2004/09/2025 LIPID PROFI LE LDL cholesterol (calc) 139 mg/dL <=99 high Optim al LDL Zaynab stero l (LDL- C) All Patie nts: < 100 mg/dL High Risk ASCVD : < 70 mg/dL Very High Risk ASCVD : < 55 mg/dL Consi vonda Famil ial Hyper zaynab stero lemia when LDL-C > 190 mg/dL . The calcu latio n for LDL zaynab stero l is based on the Samps on/NI H equat ion (HERMINIO Cardi ol.;5( 5):54 0-548 . doi:1 0.100 Dionne/walker ramirez io.00 13 Not Available [address], [place], [address], 04/10/2025 13:56:16 04/08/2004/09/2025 LIPID PROFI LE non-HDL cholesterol 166 mg/dL <=129 high Optim al Non-H DL Zaynab stero l (Non- HDL-C ) vary based on ASCVD risk and treat ment goals . All Patie nts: < 130 mg/dL Patie nts at High Risk ASCVD : < 100 mg/dL Patie nts at Very High Risk ASCVD : < 85 mg/dL Consi vonda Famil ial Hyper zaynab stero lemia when Non-H DL-C > 220 mg/dL . Non-H DL zaynab stero l is a mc targe t for cardi ovasc ular risk reduc tion. The sugge sted cutof f point s are based on recom menda tions from the Shanique moreno of Cardi ology /Asher ican Heart Assoc iatio n (ACC/ AHA) guide lines on the manag ement of blood zaynab stero l [Circ ulati on. 2019; 139:e 1082- e1143 ], and 2021 ACC Exper t Conse nsus Decis ion Pathw ay [(J Am Kostas Cardi ol. Apr, 80 (48) 5081- 1162] Not Available [address], [address], 04/10/2025 13:56:16 04/08/2004/09/2025 HEP B SURFA CE AB hep B surface Ab REACTI VE reacti ve normal Not Available [address], [address], 04/10/2025 13:56:17 04/08/2004/09/2025 TSH - THYRO ID STIMU LATIN G HORMO NE TSH 1.68 uIU/m L 0.27-4 .20 normal Not Available [address], [address], 04/10/2025 13:56:17 04/08/2004/09/2025 HEP B CORE AB TOTAL hep B core Ab total NONREA CTIVE nonrea ctive normal Not Available [address], [address], 04/10/2025 13:56:18 04/08/20 25 04/09/2025 CBC WITH AUTO DIFF WBC 6.13 K/uL 3.80-1 0.50 normal Not Available [address], [address], 04/10/2025 13:56:18 04/08/20 25 04/09/2025 CBC WITH AUTO DIFF RBC 4.33 M/uL 3.80-5 .20 normal Not Available [address], [place], [address], 04/10/2025 13:56:18 04/08/20 25 04/09/2025 CBC WITH AUTO DIFF HGB 12.1 g/dL 11.5-1 5.5 normal Not Available [address], [place], [address], 04/10/2025 13:56:18 04/08/20 25 04/09/2025 CBC WITH AUTO DIFF HCT 39.6 % 34.5-4 5.0 normal Not Available [address], [place], [address], 04/10/2025 13:56:18 04/08/20 25 04/09/2025 CBC WITH AUTO DIFF MCV 91.5 fL 80.0-1 00.0 normal Not Available [address], [place], [address], 04/10/2025 13:56:18 04/08/20 25 04/09/2025 CBC WITH AUTO DIFF MCH 27.9 pg 27.0-3 4.0 normal Not Available [address], [place], [address], 04/10/2025 13:56:18 04/08/20 25 04/09/2025 CBC WITH AUTO DIFF MCHC 30.6 g/dL 32.0-3 6.0 low Not Available [address] [facility], [place], [address], 04/10/2025 13:56:18 04/08/20 25 04/09/2025 CBC WITH AUTO DIFF RDW 14.6 % 10.3-1 4.5 high Not Available [address] [facility] [place], [address], 04/10/2025 13:56:18 04/08/20 25 04/09/2025 CBC WITH AUTO DIFF MPV 11.4 fL 7.0-13 .0 normal Not Available [address], [address], 04/10/2025 13:56:18 04/08/20 25 04/09/2025 CBC WITH AUTO DIFF plt 333 K/uL 150-40 0 normal Not Available [address], [place], [address], 04/10/2025 13:56:18 04/08/2004/09/2025 CBC WITH AUTO DIFF auto NRBC 0 /100_ WBCs 0-0 normal Not Available [address], [address], 04/10/2025 13:56:18 04/08/20 25 04/09/2025 CBC WITH AUTO DIFF auto NRBC # 0.00 K/uL 0.00-0 .00 normal Not Available [address], [place], [address], 04/10/2025 13:56:18 04/08/2004/09/2025 CBC WITH AUTO DIFF auto neutrophils % 50.0 % 43.0-7 7.0 normal Diffe renti al perce ntage s must be corre lated with absol danilo numbe rs for clini srinivasa signi fican ce. Not Available [address], [place], [address], 04/10/2025 13:56:18 04/08/20 25 04/09/2025 CBC WITH AUTO DIFF auto lymphocytes % 39.5 % 13.0-4 4.0 normal Not Available [address], [address], 04/10/2025 13:56:18 04/08/20 25 04/09/2025 CBC WITH AUTO DIFF auto monocytes % 5.7 % 2.0-14 .0 normal Not Available [address], [place], [address], 04/10/2025 13:56:18 04/08/20 25 04/09/2025 CBC WITH AUTO DIFF auto eosinophils % 3.6 % 0.0-6. 0 normal Not Available [address], [place], [address], 04/10/2025 13:56:18 04/08/20 25 04/09/2025 CBC WITH AUTO DIFF auto basophils % 1.0 % 0.0-2. 0 normal Not Available [address], [place], [address], 04/10/2025 13:56:18 04/08/20 25 04/09/2025 CBC WITH AUTO DIFF auto immature granulocytes % 0.2 % 0.0-0. 9 normal (Incl udes meta, myelo and promy elocy melo). Mild eleva tions in immat ure granu locyt es may be seen with many infla mmato ry proce sses and pregn jerome; clini srinivasa corre latio n ora sted. Not Available [address], [place], [address], 04/10/2025 13:56:18 04/08/20 25 04/09/2025 CBC WITH AUTO DIFF auto neutrophils # 3.07 K/uL 1.80-7 .40 normal Not Available [address], [place], [address], 04/10/2025 13:56:18 04/08/20 25 04/09/2025 CBC WITH AUTO DIFF auto lymphocytes # 2.42 K/uL 1.00-3 .30 normal Not Available [address], [address], 04/10/2025 13:56:18 04/08/20 04/09/2025 CBC WITH AUTO DIFF auto monocytes # 0.35 K/uL 0.00-0 .90 normal Not Available [address], [address], 04/10/2025 13:56:18 04/08/20 25 04/09/2025 CBC WITH AUTO DIFF auto eosinophils # 0.22 K/uL 0.00-0 .50 normal Not Available [address], [address], 04/10/2025 13:56:18 04/08/20 25 04/09/2025 CBC WITH AUTO DIFF auto basophils # 0.06 K/uL 0.00-0 .20 normal Not Available [address], [address], 04/10/2025 13:56:18 04/08/20 25 04/09/2025 CBC WITH AUTO DIFF auto immature granulocytes # 0.01 K/uL 0.00-0 .07 normal Not Available [address], [address], 04/10/2025 13:56:18 04/08/20 25 04/09/2025 LILI TIN SERUM ferritin 12 NG/mL 15-150 low Not Available [address], [address], 04/10/2025 13:56:19 04/08/2004/09/2025 IRON TIBC PANEL iron 134 ug/dL 30-160 normal Not Available [address], [address], 04/10/2025 13:56:19 04/08/20 25 04/09/2025 IRON TIBC PANEL UIBC 372 ug/dL 110-37 0 high Not Available [address], [address], 04/10/2025 13:56:19 04/08/20 25 04/09/2025 IRON TIBC PANEL TIBC 506 ug/dL 220-43 0 high Not Available [facility] [address], [place], [address], 04/10/2025 13:56:19 04/08/20 25 04/09/2025 IRON TIBC PANEL % saturation, iron 26 % 14-50 normal Not Available [facility] [address], [place], [address], 04/10/2025 13:56:19 04/08/2004/09/2025 HIV AG/AB SCREE N BY CMIA HIV 1,2 Ag/Ab by cmia NONREA CTIVE nonrea ctive normal Nonre activ e: HIV-1 p24 antig en and HIV-1 /HIV- 2 antib odies were not detec betzaida. Nonre activ e resul ts may be due to antig en and/o r antib caro level s that are below the limit of detec tion of this assay . React gillian: Presu mptiv e evide nce of HIV-1 p24 antig en and/o r HIV-1 /HIV- 2 antib odies . This is a preli minar y resul t. [facility] confi rmato ry testi ng accor ding to the [facility] HIV testi ng algor ithm will follo w, and such confi rmato ry resul ts must be consi dered in makin g a diagn osis relat ed to HIV infec tion. [facility] er HIV tests inclu de HIV-1 /HIV- 2 antib caro diffe renti ation immun oassa y and subse quent nucle ic acid testi ng if neede d. This resul t shoul d be inter prete d in conju nctio n with the patie nti?? s clini srinivasa prese ntati on, histo ry, and other labor atory resul ts. If the resul t is incon siste nt with clini srinivasa evide nce, addit ional testi ng is sugge sted to confi rm the resul t. Not Available [facility] [address], [place], [address], 04/10/2025 13:56:20 04/08/20 25 04/10/2025 TRICH OMONA S VAGIN DELPHINE source amplificatio n URINE normal The clini srinivasa signi fican ce of posit gillian resul ts shoul d be consi dered in conju nctio n with the overa ll clini srinivasa prese ntati on of the patie nt. Resul t is not inten ded to be used as the sole means for clini srinivasa diagn osis or patie nt manag ement decis ions. Not Available [facility] [address], [place], [address], 04/10/2025 13:56:21 04/08/20 25 04/10/2025 TRICH OMONA S VAGIN DELPHINE trichomonas vaginalis amp result NOT DETECT ED not detect ed normal The Holog ic Aptim a Trich omona s vagin delphine Assay on Panth er syste m scree ns for Trich omona s vagin delphine rRNA using trans cript ion media betzaida ampli ficat ion. The resul ts of this test shoul d be inter prete d with consi derat ion of all clini srinivasa and labor atory findi ngs. A Not Detec betzaida resul t does not precl ude the possi bilit y of infec tion with Trich omona s vagin delphine. If indet ermin ate, pleas e submi t a new speci men. This assay is not inten ded for the evalu ation of suspe cted sexua l abuse or for other medic o-leg al reaso ns. The perfo rmanc e of this test has not been evalu ated in patie nts <14 years of age. Not Available [facility] [address], [place], [address], 04/10/2025 13:56:21 04/08/20 25 04/10/2025 CHLAM ROD/ Rachna. AMPLI FICAT ION source amplificatio n URINE normal The clini srinivasa signi fican ce of posit gillian resul ts shoul d be consi dered in conju nctio n with the overa ll clini srinivasa prese ntati on of the patie nt. Resul t is not inten ded to be used as the sole means for clini srinivasa diagn osis or patie nt manag ement decis ions. Not Available [address], [address], 04/10/2025 13:56:21 04/08/20 25 04/10/2025 CHLAM YDIA/ G.C. AMPLI FICAT ION chlamydia amplificatio n result NOT DETECT ED not detect ed normal The Holog ic Aptim a Combo 2 assay on Panth er syste m scree ns for the prese nce of Chlam ydia trach omati s rRNA using trans cript ion media betzaida ampli ficat ion. A Not Detec betzaida resul t does not precl ude the possi bilit y of an infec tion with C. trach omati s. If resul ts are indet ermin ate, pleas e submi t a new speci men. This assay is not inten ded for the evalu ation of suspe cted sexua l abuse or for other medic o-leg al reaso ns. The perfo rmanc e of this test has not been evalu ated in patie nts <14 years of age Not Available [address], [place], [address], 04/10/2025 13:56:21 04/08/20 25 04/10/2025 CHLAM YDIA/ G.C. AMPLI FICAT ION GC amplificatio n result NOT DETECT ED not detect ed normal The Holog ic Aptim a Combo 2 assay on Panth er syste m scree ns for the prese nce of Neiss eria gonor rhoea e rRNA using trans cript ion media betzaida ampli ficat ion. A Not Detec betzaida resul t does not precl ude the possi bilit y of an infec tion with N. gonor rhoea e. If resul ts are indet ermin ate, pleas e submi t a new speci men. This assay is not inten ded for the evalu ation of suspe cted sexua l abuse or for other medic o-leg al reaso ns. The perfo rmanc e of this test has not been evalu ated in patie nts <14 years of age. Not Available [facility] [address], [place], [address], 04/10/2025 13:56:21 Result Notes None recorded. Problems Name Problem SNOMED Code Status Onset Date Resolution Date Notes Provider Name and Address Organization Details Recorded Time Anxiety [id number] Active Bruno gandara [facility] Providers 09:12:39 Depressive disorder 97236284 [facility] Problem Notes None recorded. Medical Equipment None Reported. Allergies No known drug allergies Medications Name Sig Start Date Stop Date Status Note LastModified by Organization Details LastModified Time fluoxetine 40 mg capsule Take 1 capsule every day by oral route for 30 days. 025 active Not Available Not Available Not Avai lable Diflucan 150 mg tablet Take 1 tablet every day by oral route for 1 day. 024 active Not Available Not Available Not Avai lable Vitals Date Recorded Body height Body mass index (BMI) Body weight Body temperature Oxygen saturation Heart rate Systolic And Diastolic Provider Name and Address Organization Details Last Updated DateTime 5 154.94 cm 20 kg/m2 09659.3 5 g 98 [degF] 98 % 81 /min 105/73 mm[Hg] Azucena Hartley [facility] Providers 5 11:35:36 Social History Question Answer Notes LastModified by Organizat ion Details LastModified Time Tobacco Smoking Status Current Some Day Smoker Bruno gandara [facility] Providers 12/22/2023 09:09:38 What Type Of Diet Are You Following? REGULAR Information n ot available 12/22/2023 How Many Times Per Week Do You Exercise? 3-4 Times Per Week Information not available 12/22/2023 What Was The Date Of Your Most Recent Tobacco Screening? 04/08/2025 [email or web address] Information not available 04/08/2025 What Is Your Relationship Status? Single Information not available 12/22/2023 Are You Sexually Active? Yes Information not available 12/22/2023 Has Tobacco Cessation Counseling Been Provided? No Information not available 12/22/2023 How Many Years Have You Smoked Tobacco? 4 Information not available 12/22/2023 What Contraceptive Method Was Reported At Start Of This Visit? Male Condom Information not available 12/22/2023 Do You Have Any Dietary Restrictions? No Information not available 12/22/2023 Sex: Female Functional Status Question Answer Note LastModified by Organizat ion Details LastModified Time How many times per week do you consume alcohol? Less than 1 time per week Information not available 12/22/2023 Do you use any illicit or recreational drugs? No Information not available 12/22/2023 What is your level of alcohol consumption? Occasional Information not available 12/22/2023 Are you currently employed? Yes Information not available 12/22/2023 What is your status? 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 Moderate Information not available 12/22/2023 Mental Status None recorded. Family History Relationship Description Onset Age of this Age Resolved Age Notes LastModified by Organization Details LastModified Time Paternal Grandmother Malignant neoplasm of uterus Not available 12/21 09:13:53 Paternal Aunt Malignant neoplasm of uterus Not available 12/21 09:13:53 Maternal Grandfather Malignant neoplasm of lung Not available 12/21 09:14:06 Father Disorder of thyroid gland Not available 12/21 09:14:23 Notes:Siblings x 1 alive and well Medical History No medical history recorded. Gynecological HistoryNo gynecological history recorded. Obstetrics History GPAL:G 0 P 0 0 0 0 Immunizations Vaccine Type Date Status Note Provider Lyle walter and Address Organization Details Recorded Time Influenza, MDCK, quadrivalent, PF 04/12/2022 completed Bruno gandara [facility] 12/22/2023 09:11:50 COVID-19, mRNA, LNP-S, PF, 100 mcg/0.5mL dose or 50 mcg/0.25mL dose 09/05/2020 completed Bruno gandara [facility] 12/22/2023 09:11:50 COVID-19, mRNA, LNP-S, PF, 100 mcg/0.5mL dose or 50 mcg/0.25mL dose 10/03/2020 completed Bruno gandara [facility] 12/22/2023 09:11:50 COVID-19, mRNA, LNP-S, PF, 30 mcg/0.3 mL dose 06/18/2021 completed Bruno gandara [facility] 12/22/2023 09:11:50 COVID-19, mRNA, LNP-S, bivalent, PF, 30 mcg/0.3 mL dose 04/12/2022 completed Bruno Oconnor [facility] 12/22/2023 09:11:50 Influenza, split virus, quadrivalent, PF 04/13/2020 completed Bruno Oconnor [facility] 12/22/2023 09:11:50 Tdap 11/28/2024 completed Not Available [facility] 04/08/2025 11:35:20 Influenza, MDCK, trivalent, PF 04/08/2025 completed Azucena gandara [facility] 04/08/2025 11:51:16 Past Encounters Encounter ID Performer Location Encounter Start Date Encounter Closed Date Diagnosis/Indication Diagnosis SNOMED-CT Code Diagnosis ICD10 Code Diagnosis IMO Codes Diagnosis Note Raissa Dumas MD [address] [place] [address] 04/08/2025 11:29:12 04/08/2025 15:54:07 Depressive disorder 26938602 F32.A - follow up psychiatry and therapy- no Suicidal/h omicidal ideations- c/w current medication Administra tion of influenza vaccine 14930683 Z23 flu vaccine administer ed without complicati ons, sterile dressing applied Adult heal th examination 828130754 Z00.00 R53.83 Z23 COVID: recommende dTd: UTDFlu vaccine: done todayOptha lmology: UTDGYN: UTDDental: UTDDerm: ReferredBl ood work ordered. Patient agreed to STD testing including HIV. Venereal d isease screening 477149147 Z11.3 Iron deficiency 06473832 E61.1 9881 Health Concerns Section Related Observation LastModified by Organization Detai ls LastModified Time None Recorded Concern Status LastModified by Organization Details LastModified Time None Recorded Payers Encounter Date Sequence Insurance Name Policy Number Policy Wyman Covered Member ID Wyman Member ID Guarantor Name 04/08/2025 1 [employer]AN 2 [place] ([place]) [id number] Agata Tony [id number] Agata Tony Notes Date Note Type Note Provider Name and Address Organization Details Recorded Time 04/08/2025 text/html presents for annual physical exam. Raissa Dumas MD [address] [place], [address], [facility] Providers 04/08/2025 11:46:52 OBGyn Episode No OBEpisode recorded.
--- OUTSIDE RECORDS SUMMARY | 2025-06-28 00:03 | XMS_ITS | Clinical Summary ---
Author Organization [facility] Address [address] [place], [place] [address] Phone Care Team Providers Care Rn Tele Name Role Phone Pcp, Unknown Primary Care Provider Unavailabl e Social History Tobacco Use Types Packs/Day Years Used Date Smoking Tobacco: Never Assessed Education Answer Date Recorded Are you interested in more education? Not on josue e 10/29/2022 Are you concerned about learning? Not on file 10/29/2022 No 10/29/2022 No 10/29/2022 Digital Access Answer Date Recorded No 11/30/2022 No 11/30/2022 No 11/30/2022 Reliable internet access at home? Not on file 11/30/2022 Device with a working camera? Not on file Comments Unknown Sex and Gender Information Value Date Recorded Sex Assigned at Not on file Legal Sex Female 12:54 PM EDT Gender Identity Not on file Sexual Orientation Not on file Plan of Treatment Not on file Medical Devices Not on file [facility] [address] POS O [place] [address] [place] [id number] [address] [place] [address] HMO [place] [address] [place] [address] [place] POS Care Teams Rn Tele Relationship Specialty Start Date End Date Pcp, Unknown PCP - General 02/14/19 Additional Source Comments The information contained in this document represents components of the legal health record. It is not the complete legal health record.[facility]
--- OUTSIDE RECORDS SUMMARY | 2025-06-28 00:03 | XMS_ITS | Encounter Summary ---
Author Organization [facility] Address [address] [place] [address] Phone Care Team Providers Care Geomagnetician Name Role Phone Nicolás Dee DO Primary Care Provider Unavailabl e Reason for Visit * Reason Comments Medication Refill Encounter Details Date Type Department Care Team ([facility] Contact Info) Description 05/28/2020 Refill [facility] [address] [place] [address] Nicolás Dee DO Anxiety and depression Social History Tobacco Use Types Packs/Day Years Used Date Smoking Tobacco: Some Days Smokeless Tobacco: Current Alcohol Use Standard Drinks/Week Comments Yes 0 (1 standard drink = 0.6 oz pur e alcohol) social Comments Unknown Sex and Gender Information Value Date Recorded Sex Assigned at Not on file Legal Sex Female 10:47 AM EDT Gender Identity Female 10/26/2019 1:24 PM EDT Sexual Orientation Something else 10/26/2019 1: 24 PM EDT documented as of this encounter Plan of Treatment Not on file documented as of this encounter Visit Diagnoses Diagnosis Anxiety and depression documented in this encounter Care Teams Geomagnetician Relationship Specialty Start Date End Date Nicolás Dee DO PCP - General Family Medicine 10/26/19 documented as of this encounter
--- OUTSIDE RECORDS SUMMARY | 2025-06-28 00:03 | XMS_ITS | Encounter Summary ---
Author Organization [facility] Address [address] [address] Phone Care Team Providers Care Mcat Tutor Name Role Phone YuriyVika ronquillo Primary Care Provider Unavailabl e Encounter Details Date Type Department Care Team ([facility] st Contact Info) Description 05/12/2020 [facility] COVID 19 [facility] AFFILIATE Social History Tobacco Use Types Packs/Day Years [...] PM EDT documented as of this encounter Progress Notes * HISTORICAL PROVIDER - 05/12/2020 10:33 PM EST COVID-19 Notification Patient Location: [address] Patient location Patient Name: AGATA ELIZALDE Sex: F : 1995 Attending provider: CAROLANN DOYLE Admitting provider: CAROLANN DOYLE [facility] service: [facility] [employer] [facility] Admission date and time: 05-10-2020 03:13 Discharge date and time: 05-10-2020 03:13 Unit: [facility] Room/bed: / START OF COVID-19 ALERT INFO COVID-19 labOrder^[id number]^SARS-CoV-2, GILBERTO^^2020-05-08 16:50:00^[id number]^VIVEK^CAROLANN COVID-19 labResult^[id number]^^Not Detected^2020-05-10 03:13:00 END OF COVID-19 ALERT INFO Primary Care Physician: [id number] SAYMEH ---- Please log into the [employer] to view more information about this event. documented in this encounter Plan of Treatment Not on file documented as of this encounter Visit Diagnoses Not on filedocumented in this encounter Care Teams Mcat Tutor Relationship Specialty Start Date End Date Vika Dee DO PCP - General Family Medicine 10/26/19 documented as of this encounter
--- OUTSIDE RECORDS SUMMARY | 2025-06-28 00:03 | XMS_ITS | Continuity of Care Document ---
Author Organization [place] - .[facility], [facility] Address [address] [place] [address] Care Team Providers Care Airplane Charter Clerk Name Role Phone RAISSA RODRIGUEZ Primary Care Provider [phone] Assessment No assessment recorded. Plan of Treatment Reminders Order Date Submit Date Provider Last Modified By Organization Details Last Modified Time Details Appointments None recorded. Lab influenza virus A + B + SARS-CoV-2 (COVID19) Ag panel, rapid IA, upper respiratory specimen 2024 025 [facility], [address] [place] [address], [id number], 17:20:42 culture, throat 2024 025 [facility], [facility] [place], [address], 06:38:53 rapid strep group A, throat 2024 025 [facility], [address] [place] [address], [phone], 17:20:42 Referral None recorded. Procedures None recorded. Surgeries None recorded. Imaging None recorded. Medication Orders Cepacol Sore Throat (benzocaine -menthol) 15 mg-3.6 mg lozenges 2024 025 [facility], [address] [place] [address], [address], 05:13:55 ibuprofen 600 mg tablet 2024 025 [facility], [address] [place] [address], [address], 17:20:42 prednisone 50 mg tablet 2024 025 [facility], [address] [place] [address], [address], 05:18:37 Sudafed 30 mg tablet 2024 025 [facility], [address] [place] [address], [address], 05:19:55 Patient TargetsNo targets recorded. Patient Instructions Encounter Date Encounter Id Patient Instructions Last Modified By Organization Details Last Modified Time 06/07/2025 [id number] A healthy lifestyle: care instructions gail Not available 06/07/2025 17:20:42 Thank you for visiting [facility]. We may be calling you to review your lab results or schedule a follow up appointment. The call will be through an automated system which asks you to press a mc to speak with one of our agents. Please be on the lookout for this call and listen to the message in its entirety. You may also view your lab results using the Ask The Doctor phyllis, available in the Phyllis Store and [employer] [email or web address]. First-time phyllis users will need to create an account; please note you l l need to select a login and password for the phyllis versus just using your patient portal login. Your lab results will be posted to the Ask The Doctor phyllis as soon as they r e available. Need a note to excuse you from work or school? You can submit a request online at [email or web address]. We will respond to your request within 2 business days. If you have any questions regarding your visit, our Aftercare department can be reached at [phone]. Our hours are 8 AM 8 PM (Mon F ri), 9 AM 6 PM (Sat S un) Viral Syndrome Your Care Instructions You don't feel well, but it's not clear what's causing it. You may have a viral infection. Viruses cause many illnesses, such as the common cold, influenza, fever, rashes, and the diarrhea, nausea, and vomiting that are often called stomach flu. You may wonder if antibiotic medicines could make you feel better. But antibiotics only treat infections caused by bacteria. They don't work on viruses. The good news is that viral infections usually aren't serious. Most will go away in a few days without medical treatment. In the meantime, there are a few things you can do to make yourself more comfortable. Follow-up care is a mc part of your treatment and safety. Be sure to make and go to all appointments, and call your doctor if you are having problems. It's also a good idea to know your test results and keep a list of the medicines you take. How can you care for yourself at home? Get plenty of rest if you feel tired. Take an sraj-dml-oqmclgx pain medicine if needed, such as acetaminophen (Tylenol), ibuprofen (Advil, Motrin), or naproxen (Aleve). Read and follow all instructions on the label. Be careful when taking faxr-fqe-evexlcd cold or flu medicines and Tylenol at the same time. Many of these medicines have acetaminophen, which is Tylenol. Read the labels to make sure that you are not taking more than the recommended dose. Too much acetaminophen (Tylenol) can be harmful. Drink plenty of fluids, enough so that your urine is light yellow or clear like water. If you have kidney, heart, or liver disease and have to limit fluids, talk with your doctor before you increase the amount of fluids you drink. Stay home from work, school, and other public places while you have a fever. When should you call for help? Call 911 anytime you think you may need emergency care. For example, call if: You have severe trouble breathing. You passed out (lost consciousness). Call your doctor now or seek immediate medical care if: You seem to be getting much sicker. You have a new or higher fever. You have blood in your stools. [email or web address] Not available 06/07/2025 15:35:23 Reason for Referral None Reported. Results Created Date Observation Date Name Description Value Unit Range Abnormal Flag Note LastModifiedBy Organization Detail LastModifiedTime 06/07/20 25 06/10/2025 CULTU RE THROA T culture, throat SEE NOTE abnormal CULTU RE, THROA T Micro Numbe r: [id number] Test Statu s: Final Speci men Sourc e: Not given Speci men Quali ty: Adequ ate Resul t: Moder ate growt h of Group A Strep tococ cus isola betzaida Beta- hemol ytic strep tococ ci are predi ctabl y susce ptibl e to Penic illin and other beta- lacta ms. Susce ptibi lity testi ng not routi ye perfo rmed. Pleas e conta ct the labor atory withi n 3 days if susce ptibi lity testi ng is venkata ed. COMME NT: Danielle l oroph aryng eal veda also prese nt. Not Available [facility] [address] [place], [address], 06/10/2025 06:38:53 06/07/20 25 06/07/2025 rapid strep group A, throa t Group A Strep NEGATI VE Not Available [address], [address], 06/07/2025 15:13:59 06/07/20 25 06/07/2025 influ opal virus A + B + SARS- CoV-2 (COVI D19) Ag panel , rapid IA, upper respi rator y speci men Flu A NEGATI VE Not Available [address], [address], 06/07/2025 15:13:50 06/07/20 25 06/07/2025 influ opal virus A + B + SARS- CoV-2 (COVI D19) Ag panel , rapid IA, upper respi rator y speci men Flu B NEGATI VE Not Available [address], [address], 06/07/2025 15:13:50 06/07/20 25 06/07/2025 influ opal virus A + B + SARS- CoV-2 (COVI D19) Ag panel , rapid IA, upper respi rator y speci men Covid-19 NEGATI VE Not Available [address], [address], 06/07/2025 15:13:50 Result Notes None recorded. Problems Name Problem SNOMED Code Status Onset Date Resolution Date Notes Provider Name and Address Organization Details Recorded Time Streptococcal infectious disease 31899058 Active 2024 Reshma gandara [place] - [facility] 14:39:50 Problem Notes None recorded. Procedures Surgical History Date Name Laterality Status Provider Name and Address Organization Details Recorded Time 11/29/19 . Laceration - Dermabond completed Lars Oneil [facility] 11/28/2024 15:09:59 10/11/19 25 . Venipuncture completed Kishor Troncoso [place] - [facility] 10/10/2024 15:05:59 08/07/19 25 . Venipuncture completed Malika Willis [facility] 08/07/2024 12:42:24 03/14/20 24 . Venipuncture completed Terrie Connors DO [address] [place] [address],[address], [place], [address], [facility] 03/14/2024 13:10:59 Imaging Results None recorded. Procedure Notes None recorded. Medical Equipment None Reported. Allergies No known drug allergies Medications Name Sig Start Date Stop Date Status Note LastModified by Organization Details LastModified Time amoxicilli n 500 mg capsule Take 1 capsule twice a day by oral route as directed for 10 days. 06/27 completed Strep a Not Available Not Available Not Available doxycyclin e hyclate 100 mg capsule Take 1 capsule twice a day by oral route for 7 days. 10/23 completed Not Available Not Available Not Available Pyridium 200 mg tablet Take 1 tablet 3 times a day by oral route for 2 days. 03/14 completed Not Available Not Available Not Available Diflucan 150 mg tablet Take 1 tablet every day by oral route for 1 day. 06/07 completed Not Available Not Available Not Available Macrobid 100 mg capsule Take 1 capsule twice a day by oral route for 7 days. 11/02 completed Not Available Not Available Not Available prednisone 50 mg tablet Take 1 tablet every day by oral route for 3 days. 06/17 completed Not Available Not Available Not Available ibuprofen 600 mg tablet Take 1 tablet every 6 hours by oral route as needed for 14 days. 2024 active Not Available Not Available Not Avai lable Sudafed 30 mg tablet Take 1 tablet every 6 hours by oral route as needed for 5 days. 06/19 completed Not Available Not Available Not Available fluoxetine active Not Available Not Av ailable Not Available fluconazol e 10/23 completed Not Available Not Available Not Available Cepacol Sore Throat (benzocain e-menthol) 15 mg-3.6 mg lozenges Take 1 lozenge as needed by mucous route for 7 days. 06/21 completed Not Available Not Available Not Available Vitals Date Recorded Body height Body mass index (BMI) Body weight Heart rate Body temperature Respiratory rate Oxygen saturation Systolic And Diastolic Provider Name and Address Organization Details Last Updated DateTime 154.94 cm 20.8 kg/m2 30108.1 6 g 73 /min 97.9 [degF] 16 /min 99 % 112/74 mm[Hg] Merissa TRUONG - .[facility] 15:11:31 Social History Question Answer Notes LastModified by Organizat ion Details LastModified Time Tobacco Smoking Status Current Some Day Smoker DIONNE Khanna - .[facility] 05/17/2022 14:47:05 RISK LEVEL - Segmentation Level 1 - Healthy [id number] Information not available 06/10/2022 What Was The Date Of Your Most Recent Tobacco Screening? 10/23/2024 [email or web address] Information not available 10/23/2024 Has Tobacco Cessation Counseling Been Provided? Yes [email or web address] Information not available 05/17/2022 On What Date Was Tobacco Cessation Counseling Provided? 10/23/2024 [email or web address] Information not available 10/23/2024 Sex: Unknown Functional Status None recorded. Mental Status None recorded. Family History Relationship Description Onset Age of this Age Resolved Age Notes LastModified by Organization Details LastModified Time Father No current problems or disability [email or web address] Not available 05/04 14:46:56 Mother No current problems or disability [email or web address] Not available 05/04 14:46:56 Medical History No medical history recorded. Gynecological HistoryNo gynecological history recorded. Obstetrics History GPAL:G 0 P 0 0 0 0 Immunizations Vaccine Type Date Status Note Provider Nam e and Address Organization Details Recorded Time Influenza, split virus, quadrivalent, PF 04/13/2020 completed Not Available [facility] 15:03:33 COVID-19, mRNA, LNP-S, PF, 100 mcg/0.5mL dose or 50 mcg/0.25mL dose 09/05/2020 completed Not Available [facility] 5 15:03:33 COVID-19, mRNA, LNP-S, PF, 100 mcg/0.5mL dose or 50 mcg/0.25mL dose 10/03/2020 completed Not Available [facility] 5 15:03:33 COVID-19, mRNA, LNP-S, PF, 30 mcg/0.3 mL dose 06/18/2021 completed Not Available [facility] 5 15:03:33 Influenza, MDCK, quadrivalent, PF 04/12/2022 completed Not Available [facility] 5 15:03:33 COVID-19, mRNA, LNP-S, bivalent, PF, 30 mcg/0.3 mL dose 04/12/2022 completed Not Available [facility] 15:03:33 Influenza, MDCK, trivalent, PF 04/08/2025 completed Not Available [facility] 2024 15:03:33 Tdap 11/28/2024 completed DIONNE Wyatt - .[facility] 11/28/2024 15:12:15 Past Encounters Encounter ID Performer Location Encounter Start Date Encounter Closed Date Diagnosis/Indication Diagnosis SNOMED-CT Code Diagnosis ICD10 Code Diagnosis IMO Codes Diagnosis Note [id number] Julius Sosa MD [facility] [address] [place] [address] 06/07/2025 14:56:17 06/07/2025 15:36:16 Viral disease 22785583 B34.9 18314 Health Concerns Section Related Observation LastModified by Organization Detai ls LastModified Time None Recorded Concern Status LastModified by Organization Details LastModified Time None Recorded Payers Encounter Date Sequence Insurance Name Policy Number Policy Wyman Covered Member ID Wyman Member ID Guarantor Name 06/07/2025 1 [facility] [id number] Agata Tony [id number] Agata Tony Notes Date Note Type Note Provider Name and Address Organization Details Recorded Time 06/07/2025 text/html Sore throat - cmdReported by PatientHPIFor patient presents with, patient reportssore throat complaint which began yesterday. For pertinent findings, patient reports(+) painful swallowing,(+) swollen glands,(+) sinus congestion, and(+) hoarse voicebut reportsno coughandno shortness of breath.30 y/o F presents with sore throat since yesterday. C/o painful swallowing, swollen glands, sinus pressure, b/l ear pain, headaches, hoarse voice, fever sweats and chills. Denies being around anyone with similar sxs. Reports using Nyquil and Dayquil with mild relief of sxs. Julius Sosa MD [address] [facility],[address], [place], [address], [place] - .[facility] 06/07/2025 18:52:44 OBGyn Episode No OBEpisode recorded.
--- OUTSIDE RECORDS SUMMARY | 2025-06-28 00:03 | XMS_ITS | Encounter Summary ---
Author Organization [facility] Address [address] [address] Phone Care Team Providers Care Smelting Engineer Name Role Phone YuriyVika ronquillo Primary Care Provider Unavailabl e Encounter Details Date Type Department Care Team ([facility] st Contact Info) Description 05/25/[address] [facility] [address] AFFILIATE Social History Tobacco Use Types Packs/Day [...] encounter Progress Notes * HISTORICAL PROVIDER - 05/25/2020 11:41 PM EST COVID-19 Notification Patient Location: [address] Patient location Patient Name: AGATA ELIZALDE Sex: F : 1995 Attending provider: CAROLANN DOYLE Admitting provider: CAROLANN DOYLE [facility] service: [facility] [employer] [facility] Admission date and time: 05-24-2020 11:41 Discharge date and time: 05-24-2020 11:41 Unit: [facility] Room/bed: / START OF COVID-19 ALERT INFO COVID-19 labOrder^[id number]^SARS-CoV-2, GILBERTO^^2020-05-22 10:40:00^[id number]^VIVEK^CAROLANN COVID- labResult^[id number]^^Not Detected^2020-05-24 11:41:00 END OF COVID-19 ALERT INFO Primary Care Physician: [phone] SAYMEH ---- Please log into the [employer] to view more information about this event. documented in this encounter Plan of Treatment Not on file documented as of this encounter Visit Diagnoses Not on filedocumented in this encounter Care Teams Smelting Engineer Relationship Specialty Start Date End Date Vika Dee DO PCP - General Family Medicine 10/26/19 documented as of this encounter
--- OUTSIDE RECORDS SUMMARY | 2025-06-28 00:03 | XMS_ITS | Encounter Summary ---
Author Organization [facility] Address [address] [place], [place] [address] Phone Care Team Providers Care Crochet Machine Operator Name Role Phone Lashawn Johnson MD Primary Care Provider Unavailabl e Encounter Details Date Type Department Care Team (Late st Contact Info) Description 03/08/2013 Documentation [facility] Family Medicine [address] [place] [address] Family Medicine, Physician [address] [place] [address] Social History Tobacco Use Types Packs/Day Years Used Date Smoking Tobacco: Never Assessed Comments Unknown Sex and Gender Information Value Date Recorded Sex Assigned at Not on file Legal Sex Female 5:25 PM EDT Gender Identity Not on file Sexual Orientation Not on file documented as of this encounter Plan of Treatment Not on file documented as of this encounter Visit Diagnoses Not on filedocumented in this encounter Care Teams Crochet Machine Operator Relationship Specialty Start Date End Date Lashawn Johnson MD PCP - General 02/11/17 03/03/18 documented as of this encounter
--- OUTSIDE RECORDS SUMMARY | 2025-06-28 00:03 | XMS_ITS | Encounter Summary ---
Author Organization [facility] Address [address] [place], [place] [id number] Phone Care Team Providers Care Food Products Sales Representative Name Role Phone Lashawn Johnson MD Primary Care Provider Unavailabl e Encounter Details Date Type Department Care Team (Late st Contact Info) Description 07/22/[address] [facility] Family Medicine [address] [place] [address] Family Medicine, Physician [address] [place] [address] Social History Tobacco Use Types Packs/Day Years [...] on filedocumented in this encounter Care Teams Food Products Sales Representative Relationship Specialty Start Date End Date Lashawn Johnson MD PCP - General 02/11/17 03/03/18 documented as of this encounter
--- OUTSIDE RECORDS SUMMARY | 2025-06-28 00:03 | XMS_ITS | Encounter Summary ---
Author Organization [facility] Address [address] [phone] Phone Care Team Providers Care Auto Care Center Manager Name Role Phone YuriyVika ronquillo Primary Care Provider Unavailabl e Encounter Details Date Type Department Care Team ([facility] st Contact Info) Description 02/12/2020 [facility] COVID 19 Alert [facility] Social History Tobacco Use Types Packs/Day [...] encounter Progress Notes * HISTORICAL PROVIDER - 02/12/2020 9:27 PM EDT COVID-19 Notification Patient Location: [address] Patient location Patient Name: AGATA ELIZALDE Sex: F : 1995 Attending provider: , Admitting provider: , Hospital service: [facility] Admission date and time: 02-12-2020 01:35 Discharge date and time: 02-12-2020 01:35 Unit: [facility] Room/bed: / START OF COVID-19 ALERT INFO COVID- labOrder^[id number]^^2020-02-01 00:00:00^^^ COVID-19 labResult^[id number]^^Not detected^2020-02-12 01:35:00 END OF COVID-19 ALERT INFO Primary Care Physician: [id number] SAYMEH ---- Please log into the [employer] to view more information about this event. documented in this encounter Plan of Treatment Not on file documented as of this encounter Visit Diagnoses Not on filedocumented in this encounter Care Teams Auto Care Center Manager Relationship Specialty Start Date End Date Vika Dee DO PCP - General Family Medicine 10/26/19 documented as of this encounter
--- OUTSIDE RECORDS SUMMARY | 2025-06-28 00:04 | XMS_ITS | Encounter Summary ---
Author Organization [facility] Address [address] [place] [phone] Phone Care Team Providers Care Quality Checker Name Role Phone Nicolás Dee Primary Care Provider Unavailabl e Reason for Visit * Reason Onset Date Comments Medication Refill 08/08/2021 Encounter Details Date Type Department Care Team ([facility] Contact Info) Description 08/08/2021 Refill [facility] [address] [place] [id number] Gui Odell MD [address] [place] [address] Anxiety and depression Social History Tobacco Use Types Packs/Day Years Used Date Smoking Tobacco: Some Days Smokeless Tobacco: Current Alcohol Use Standard Drinks/Week Comments Yes 0 (1 standard drink = 0.6 oz pur e alcohol) social Health Literacy Answer Date Recorded Trouble understanding healthcare information Not on file 12/02/2020 Inadequate Housing Answer Date Recorded Type of residence: Not on file 12/02/2020 Do you worry about losing your housing? Not on f ile 12/02/2020 Within the past 12 months, h ave you or the family members you live with been unable to get heat, electricity, or water when it was really needed? Not on file 12/02/2020 Comments Not on file 12/02/2020 Medication Challenges Answer Date Recor ded Medication Challenges Not on file 12/02/2020 Medication Challenges Types Not on file 07/2020 Medication Challenges - Other reasons Not on josue e 12/02/2020 Comments Unknown Sex and Gender Information Value [...] depression documented in this encounter Care Teams Quality Checker Relationship Specialty Start Date End Date Nicolás Dee DO PCP - General Family Medicine 10/26/19 documented as of this encounter
--- OUTSIDE RECORDS SUMMARY | 2025-06-28 00:04 | XMS_ITS | Data Portability ---
Author Organization [place] - .[facility], [facility] Address [address] [place] [address] Care Team Providers Care Review Rn Name Role Phone RAISSA RODRIGUEZ Primary Care Provider [phone] Assessment No assessment recorded. Plan of Treatment Reminders Order Date Submit Date Provider Last Modified By Organization Details Last Modified Time Details Appointments None record ed. Lab influe nza virus A + B + SARS-C oV-2 (COVID 19) Ag panel, rapid IA, upper respir atory specim en 2024 025 [facility] [address], [address], 17:20:42 cultur e, throat 2024 025 [facility], [address] [place] [address], [address], 06:38:53 rapid strep group A, throat 2024 025 [facility] [place], [address] [place] [address], [address], 5 17:20:42 cultur e, urine 2024 025 [facility], [address] [place] [address], [address], 5 03:15:04 pregna ncy test, urine 2024 025 [facility] [address] [place] [address], [id number], 5 17:55:52 urinal ysis, dipsti ck, auto 2024 025 [facility], [address] [place] [address], [address], 5 17:55:52 cultur e, urine 2024 025 [facility], [address] [place] [address], [address], 5 06:22:07 urinal ysis, dipsti ck, auto 2024 025 [facility], [address] [place] [address], [phone], 5 09:34:52 pregna ncy test, urine 2024 025 [facility], [address] [place] [address], [address], 5 09:34:52 chlamy tio + gonorr hea RNA, QL, unspec ified specim en 2024 025 [email or web address] [facility], [address] [place] [address], [address], 5 08:13:30 HBsAg (hepat itis B surfac e Ag), serum 2024 025 [email or web address] [facility], [address] [place] [address], [address], 5 08:13:30 hepati tis C virus Ab, serum 2024 025 [email or web address] [facility], [address] [place], [address], 5 08:13:30 syphil is Ab, igg 2024 025 [facility], [address] [place], [address], 5 11:10:34 tricho monas vagina lis RNA, tma, genita l 2024 025 [email or web address] [facility], [address] [place], [address], 5 08:13:30 HIV 1+2 AB + HIV 1 p24 Ag, qualit ative immuno assay, serum 2024 025 [email or web address] [facility], [address] [place], [address], 5 08:13:30 Referral None record ed. Procedures None record ed. Surgeries None record ed. Imaging None record ed. Medication Orders Cepaco l Sore Throat (benzo charles- mentho l) 15 mg-3.6 mg lozeng es 2024 [facility], [address] [place] [address], [address], 5 05:13:55 ibupro fen 600 mg tablet 2024 [facility], [address] [place] [address], [address], 5 17:20:42 predni sone 50 mg tablet 2024 [facility], [address] [place] [address], [address], 5 05:18:37 Sudafe d 30 mg tablet 2024 [facility], [address] [place], [address], 05:19:55 Difluc an 150 mg tablet 2024 [id number], [phone] [place], [address], 15:08:49 Macrob id 100 mg capsul e 2024 [email or web address] [facility] , [address] [place], [address], 17:31:39 Patient TargetsNo targets recorded. Patient Instructions Encounter Date Encounter Id Patient Instructions Last Modified By Organization Details Last Modified Time 10/10/2024 [id number] A healthy lifestyle: care instructions [email or web address] Not available 10/12/2024 08:13:30 Thank you for visiting [facility]. We may be calling you to review your lab results or schedule a follow up appointment. The call will be through an automated system which asks you to press a mc to speak with one of our agents. Please be on the lookout for this call and listen to the message in its entirety. You may also view your lab results using the [facility] phyllis, available in the Phyllis Store and Google Play. First-time phyllis users will need to create an account; please note you l l need to select a login and password for the phyllis versus just using your patient portal login. Your lab results will be posted to the [facility] phyllis as soon as they r e available. Need a note to excuse you from work or school? You can submit a request online at [email or web address] We will respond to your request within 2 business days If you have any questions regarding your visit, our Aftercare department can be reached at [phone]. Our hours are Tuesday from 8 am 11 pm or Tuesday/Tuesday from 9a 8p. STD TESTING Your visit today was potentially related to a sexually transmitted disease (STD). Testing and treatment may have been initiated by your caregiver. A definitive diagnosis often cannot be made at the time of the visit and tests are sent out to a laboratory help to ascertain answers to your concerns. As an urgent care provider, we have made our best attempt to diagnose your condition. However, it is important that you follow up with your regular provider for continued care as necessary. Please contact us with any questions regarding your care or treatment. We are here to help. HOME CARE Abstain from sexual intercourse for one week after treatment for you (or your partner) for a presumed STD, or until the results of your STD tests are back if you did not receive treatment at your visit today. Notifying and having your partner treated if possible, is essential to prevent spread of disease and repeated infection: if you resume sexual relations with an untreated partner, you will likely contract the STD again. Return if your symptoms do not resolve with treatment. Follow up with your primary care physician (or public relations senior associate, if applicable) for ongoing medical treatment. Repeat testing after periods of time is usually needed to confirm that you have not been infected with certain STDs. TEST RESULTS If tests were performed during your visit, test results will be relayed to you by our Aftercare department. Please understand that some blood tests take longer to process than others as secondary testing may be performed to ensure accuracy. Some test results take up to two weeks for return to us from the laboratory; you may be asked to return to [facility] for a discussion of your results. Please call [facility] Aftercare if you desire a status update on your results. If you have questions on the day of treatment, you are best served to first contact the site you visited for care and testing so that you may speak with your providing caregiver. You can also reach Aftercare at ; office hours are 8 am to 9 pm Mon-Fri, and 9 am to 7 pm on weekends. [email or web address] Not available 10/10/2024 14:59:02 10/23/2024 [id number] A healthy lifestyle: care instructions [email or web address] Not available 10/23/2024 09:34:52 UTI in Women Your Care Instructions A urinary tract infection, or UTI, is a general term for an infection anywhere between the kidneys and the urethra (where urine comes out). Most UTIs are bladder infections. They often cause pain or burning when you urinate. UTIs are caused by bacteria and can be cured with antibiotics. Be sure to complete your treatment so that the infection goes away. Follow-up care is a mc part of your treatment and safety. Be sure to make and go to all appointments, and call your doctor if you are having problems. It's also a good idea to know your test results and keep a list of the medicines you take. How can you care for yourself at home? Take your antibiotics as directed. Do not stop taking them just because you feel better. You need to take the full course of antibiotics. Drink extra water and other fluids for the next day or two. This may help wash out the bacteria that are causing the infection. (If you have kidney, heart, or liver disease and have to limit fluids, talk with your doctor before you increase your fluid intake.) Avoid drinks that are carbonated or have caffeine. They can irritate the bladder. Urinate often. Try to empty your bladder each time. To relieve pain, take a hot bath or lay a heating pad set on low over your lower belly or genital area. Never go to sleep with a heating pad in place. To prevent UTIs Drink plenty of water each day. This helps you urinate often, which clears bacteria from your system. (If you have kidney, heart, or liver disease and have to limit fluids, talk with your doctor before you increase your fluid intake.) Urinate when you need to. Urinate right after you have sex. Change sanitary pads often. Avoid douches, bubble baths, feminine hygiene sprays, and other feminine hygiene products that have deodorants. After going to the bathroom, wipe from front to back. When should you call for help? Call your doctor now or seek immediate medical care if: Symptoms such as fever, chills, nausea, or vomiting get worse or appear for the first time. You have new pain in your back just below your rib cage. This is called flank pain. There is new blood or pus in your urine. You have any problems with your antibiotic medicine. Watch closely for changes in your health, and be sure to contact your doctor if: You are not getting better after taking an antibiotic for 2 days. Your symptoms go away but then come back. [email or web address] Not available 10/23/2024 09:33:39 11/02/2024 [id number] A healthy lifestyle: care instructions [email or web address] Not available 11/02/2024 17:55:52 Thank you for visiting [facility]. We may be calling you to review your lab results or schedule a follow up appointment. The call will be through an automated system which asks you to press a mc to speak with one of our agents. Please be on the lookout for this call and listen to the message in its entirety. You may also view your lab results using the [facility] phyllis, available in the Phyllis Store and Google Play. First-time phyllis users will need to create an account; please note you l l need to select a login and password for the phyllis versus just using your patient portal login. Your lab results will be posted to the [facility] phyllis as soon as they r e available. Need a note to excuse you from work or school? You can submit a request online at [email or web address] We will respond to your request within 2 business days. If you have any questions regarding your visit, our Aftercare department can be reached at [phone]. Our hours are Tuesday from 8 am 11 pm or Tuesday/Tuesday from 9a 8p. Dysuria Burning pain with urination (dysuria) is a common symptom of a urinary tract infection or other urinary problems. The bladder may become inflamed. This can cause pain when the bladder fills and empties. You may also feel pain if the tube that carries urine from the bladder to the outside of the body (urethra) gets irritated or infected. Sexually transmitted infections (STIs) also may cause pain when you urinate. Sometimes the pain can be caused by things other than an infection. The urethra can be irritated by soaps, perfumes, or foreign objects in the urethra. Kidney stones can cause pain when they pass through the urethra. The cause may be hard to find. You may need tests. Treatment for painful urination depends on the cause. Follow-up care is a mc part of your treatment and safety. Be sure to make and go to all appointments, and call your doctor if you are having problems. It's also a good idea to know your test results and keep a list of the medicines you take. How can you care for yourself at home? Drink extra water for the next day or two. This will help make the urine less concentrated. (If you have kidney, heart, or liver disease and have to limit fluids, talk with your doctor before you increase the amount of fluids you drink.) Avoid drinks that are carbonated or have caffeine. They can irritate the bladder. Urinate often. Try to empty your bladder each time. For women: Urinate right after you have sex. After going to the bathroom, wipe from front to back. Avoid douches, bubble baths, and feminine hygiene sprays. And avoid other feminine hygiene products that have deodorants. When should you call for help? Call your doctor now or seek immediate medical care if: You have new symptoms, such as fever, nausea, or vomiting. You have new or worse symptoms of a urinary problem. For example: You have blood or pus in your urine. You have chills or body aches. It hurts worse to urinate. You have groin or belly pain. You have pain in your back just below your rib cage (the flank area). Watch closely for changes in your health, and be sure to contact your doctor if you have any problems. [email or web address] Not available 11/02/2024 17:34:37 11/28/2024 [id number] A healthy lifestyle: care instructions [email or web address] Not available 11/28/2024 23:03:53 Tdap (tetanus, diphtheria, pertussis) vaccine: what you need to know [email or web address] Not available 11/28/2024 23:03:53 Thank you for visiting [employer] [facility]. We may be calling you to review your lab results or schedule a follow up appointment. The call will be through an automated system which asks you to press a mc to speak with one of our agents. Please be on the lookout for this call and listen to the message in its entirety. You may also view your lab results using the [facility] phyllis, available in the Phyllis Store and Google GreenDust. First-time phyllis users will need to create an account; please note you l l need to select a login and password for the phyllis versus just using your patient portal login. Your lab results will be posted to the [facility] phyllis as soon as they r e available. Need a note to excuse you from work or school? You can submit a request online at [email or web address] We will respond to your request within 2 business days. If you have any questions regarding your visit, our Aftercare department can be reached at [phone]. Our hours are Tuesday from 8 am 11 pm or Tuesday/Tuesday from 9a 8p. Laceration: Repaired with Adhesive Your Care Instructions: A cut can happen anywhere on your body. The doctor used an adhesive to close the cut. When the adhesive dries, it forms a film that holds the edges of the cut together. Skin adhesives are sometimes called liquid stitches. If the cut went deep and through the skin, the doctor may have put in a layer of stitches below the adhesive. The deeper layer of stitches brings the deep part of the cut together. These stitches will dissolve and don''t need to be removed. You don''t see the stitches, only the adhesive. You may have a bandage. The doctor has checked you carefully, but problems can develop later. If you notice any problems or new symptoms, get medical treatment right away. Follow-up care is a mc part of your treatment and safety. Be sure to make and go to all appointments, and call your doctor if you are having problems. It''s also a good idea to know your test results and keep a list of the medicines you take. How can you care for yourself at home? Keep the cut dry for the first 24 to 48 hours. After this, you can shower if your doctor okays it. Pat the cut dry. Don''t soak the cut, such as in a bathtub. Your doctor will tell you when it''s safe to get the cut wet. If your doctor told you how to care for your cut, follow your doctor''s instructions. If you did not get instructions, follow this general advice: Do not put any kind of ointment, cream, or lotion over the area. This can make the adhesive fall off too soon. After the first 24 to 48 hours, wash around the cut with clean water 2 times a day. Do not use hydrogen peroxide or alcohol, which can slow healing. If the doctor told you to use a bandage, put on a new bandage after cleaning the cut or if the bandage gets wet or dirty. Prop up the sore area on a pillow anytime you sit or lie down during the next 3 days. Try to keep it above the level of your heart. This will help reduce swelling. Leave the skin adhesive on your skin until it falls off on its own. This may take 5 to 10 days. Do not scratch, rub, or pick at the adhesive. Do not put the sticky part of a bandage directly on the adhesive. Avoid any activity that could cause your cut to reopen. Be safe with medicines. Read and follow all instructions on the label. If the doctor gave you a prescription medicine for pain, take it as prescribed. If you are not taking a prescription pain medicine, ask your doctor if you can take an usgh-xwx-eyaxxdq medicine. When should you call for help? Call your doctor now or seek immediate medical care if: You have new pain, or your pain gets worse. The skin near the cut is cold or pale or changes color. You have tingling, weakness, or numbness near the cut. The cut starts to bleed. You have trouble moving the area near the cut. You have symptoms of infection, such as: Increased pain, swelling, warmth, or redness around the cut. Red streaks leading from the cut. Pus draining from the cut. A fever. Watch closely for changes in your health, and be sure to contact your doctor if: The cut reopens. You do not get better as expected. [email or web address] Not available 11/28/2024 15:10:43 06/07/2025 [id number] A healthy lifestyle: care instructions [email or web address] Not available 06/07/2025 17:20:42 Thank you for visiting [employer] [facility]. We may be calling you to review your lab results or schedule a follow up appointment. The call will be through an automated system which asks you to press a mc to speak with one of our agents. Please be on the lookout for this call and listen to the message in its entirety. You may also view your lab results using the [facility] phyllis, available in the Phyllis Store and Google Play. First-time phyllis users will need to create an account; please note you l l need to select a login and password for the phyllis versus just using your patient portal login. Your lab results will be posted to the [facility] phyllis as soon as they r e available. Need a note to excuse you from work or school? You can submit a request online at [email or web address] We will respond to your request within 2 business days. If you have any questions regarding your visit, our Aftercare department can be reached at [phone]. Our hours are 8 AM 8 PM (Mon ri), 9 AM 6 PM (Tue un) Viral Syndrome Your Care Instructions You [...] rest if you feel tired. Take an ukgx-plr-rlddxip pain medicine if needed, such as acetaminophen (Tylenol), ibuprofen (Advil, Motrin), or naproxen (Aleve). Read and follow all instructions on the label. Be careful when taking zoma-zwv-ugvlwlx cold or flu medicines and Tylenol at [...] fever. You have blood in your stools. [email or web address] Not available 06/07/2025 15:35:23 Reason for Referral None Reported. Results Created Date Observation Date Name Description Value Unit Range Abnormal Flag Note LastModifiedBy Organization Detail LastModifiedTime 10/11/19 25 10/11/2024 CHLAM YDIA/ GC PCR, URINE chlamydia trachomatis, DNA, PCR, urogenital NOT DETECT ED not detect ed normal Not Available [facility] [address] [place] [address], [address], 10/11/2024 12:03:38 10/11/19 25 10/11/2024 CHLAM YDIA/ GC PCR, URINE neisseria gonorrhoeae, DNA, PCR, urogenital NOT DETECT ED not detect ed normal Not Available [facility] [address] [place], [address], 10/11/2024 12:03:38 10/11/19 25 10/12/2024 HEP C ANTIB PARISH HCV Ab NON REACTI VE non reacti ve normal Not Available [facility] [address] [place], [address], 10/12/2024 02:09:45 10/11/19 25 10/12/2024 HEP C ANTIB PARISH interpretati on: COMMEN T normal Not infec betzaida with HCV unles s early or acute infec tion is suspe cted (whic h may be delay ed in an immun ocomp romis ed indiv idual ), or other evide nce exist s to indic ate HCV infec tion. Not Available [facility] [address], [place], [address], 10/12/2024 02:09:45 10/11/1910/11/2024 TRICH OMONA S PCR, URINE trichomonas vaginalis DNA, PCR NOT DETECT ED not detect ed normal Not Available [facility] [address], [place], [address], 10/12/2024 02:09:47 10/11/1910/12/2024 HEP B SURFA CE AG II HBsAg screen NEGATI VE negati ve normal Not Available [facility] [address], [place], [address], 10/12/2024 02:09:49 10/11/1910/12/2024 HIV SCREE N 4TH GENER ATION WRFX HIV Ab/P24 Ag screen NON REACTI VE non reacti ve normal HIV-1 /HIV- 2 antib odies and HIV-1 p24 antig en were NOT detec betzaida. There is no labor atory evide nce of HIV infec tion. HIV Negat massimo Not Available [facility] [address], [place], [address], 10/12/2024 02:09:52 10/11/1910/12/2024 SYPHI LIS SCREE N/REF ALEJANDRA TO RPR T pallidum antibodies NON REACTI VE non reacti ve normal Not Available [facility] [address] [place], [address], 10/12/2024 11:10:34 10/24/1910/26/2024 CULTU RE URINE culture, urine, routine SEE NOTE abnormal CULTU RE, URINE , ROUTI NE Micro Numbe r: [id number] Test Statu s: Final Speci men Sourc e: Voide d/geraldine an catch Speci men Quali ty: Adequ ate Resul t: Great er than 100,0 00 CFU/m L of Esche rito a coli Comme nt: A porti on of the resul ts were perfo rmed at [facility]. E.col i ----- ----- ----- - INT MANJEET AMIKA RON S 4 AMOX/ CLAVU LANAT E S <=2 AMP/S ULBAC SAEED S <=2 CEFAZ VICKIE NR <=4 2 CEFEP REGINA S <=0.1 2 CEFTA ZIDIM E S <=1 CEFTR IAXON E S <=0.2 5 CIPRO FLOXA RON S <=0.0 6 GENTA MICIN S <=1 IMIPE NEM S <=0.2 5 LEVOF LOXAC IN S <=0.1 2 MEROP ENEM S <=0.2 5 NITRO FURAN TOIN S <=16 PIP/T AZOBA CTAM S <=4 TRIME THOPR IM/PAYNE LFA R >=320 S = Susce ptibl e I = Inter media te R = Resis tant NS = Not susce ptibl e SDD = Susce ptibl e Dose Depen dent * = Not Teste d NR = Not Repor betzaida NN = See Thera py Comme nts THERA PY COMME NTS Note 1: For infec tions other than uncom plica betzaida UTI cause d by E. coli, K. pneum oniae or P. mirab ilis: Cefaz vickie is resis tant if MANJEET > or = 8 mcg/m L. (Dist ingui shing susce ptibl e versu s inter media te for isola melo with MANJEET < or = 4 mcg/m L requi res addit ional testi ng.) Note 2: For uncom plica betzaida UTI cause d by E. coli, K. pneum oniae or P. mirab ilis: Cefaz vickie is susce ptibl e if MANJEET <32 mcg/m L and predi cts susce ptibl e to the oral agent s cefac skyla, cefdi james, cefpo doxim e, cefpr ozil, cefur oxime , cepha lexin and lorac arbef . Not Available [facility] [address], [place], [address], 10/26/2024 05:44:49 10/24/19 25 10/23/2024 pregn jerome test, urine Human Chorionic Gonadotropin (hCG) NEGATI VE Not Available [address], [address], 10/23/2024 09:26:37 10/24/19 25 10/23/2024 urina lysis , dipst ick, auto BLOOD 50 - (roseline/u L, ref. neg) Not Available [address], [address], 10/23/2024 09:26:34 10/24/19 25 10/23/2024 urina lysis , dipst ick, auto UROBILINOGEN NORMAL - (mg/dL , ref. normal ) Not Available [address], [address], 10/23/2024 09:26:34 10/24/19 25 10/23/2024 urina lysis , dipst ick, auto BILIRUBIN 2 - (mg/dL , ref. neg) Not Available [address], [address], 10/23/2024 09:26:34 10/24/19 25 10/23/2024 urina lysis , dipst ick, auto PROTEIN NEGATI VE - (mg/dL , ref. neg) Not Available [address], [address], 10/23/2024 09:26:34 10/24/19 25 10/23/2024 urina lysis , dipst ick, auto NITRITES POSITI VE - (ref. neg) Not Available [address], [address], 10/23/2024 09:26:34 10/24/19 25 10/23/2024 urina lysis , dipst ick, auto KETONES NEGATI VE - (mg/dL , ref. neg) Not Available [address], [address], 10/23/2024 09:26:34 10/24/19 25 10/23/2024 urina lysis , dipst ick, auto GLUCOSE NEGATI VE - (mg/dL , ref. neg) Not Available [address], [address], 10/23/2024 09:26:34 10/24/19 25 10/23/2024 urina lysis , dipst ick, auto pH 5 - (ref. 5.0-7. 0) Not Available [address], [address], 10/23/2024 09:26:34 10/24/19 25 10/23/2024 urina lysis , dipst ick, auto SPECIFIC GRAVITY 1.015 (ref. 1.010- 1.030) Not Available [address], [address], 10/23/2024 09:26:34 10/24/19 25 10/23/2024 urina lysis , dipst ick, auto LEUKOCYTES 500 - (Queenie/d L, ref. neg) Not Available [address], [address], 10/23/2024 09:26:34 11/03/19 25 11/04/2024 CULTU RE URINE culture, urine, routine SEE NOTE CULTU RE, URINE , ROUTI NE Micro Numbe r: [id number] Test Statu s: Final Speci men Sourc e: Voide d/geraldine an catch Speci men Quali ty: Adequ ate Resul t: No Growt h Comme nt: A porti on of the resul ts were perfo rmed at [facility]. Not Available [facility] [address] [facility], [place], [address], 11/04/2024 03:15:04 11/03/19 25 11/02/2024 urina lysis , dipst ick, auto BLOOD 10 - (roseline/u L, ref. neg) Not Available [address], [address], 11/02/2024 17:34:21 11/03/19 25 11/02/2024 urina lysis , dipst ick, auto UROBILINOGEN 4 - (mg/dL , ref. normal ) Not Available [address], [address], 11/02/2024 17:34:21 11/03/19 25 11/02/2024 urina lysis , dipst ick, auto BILIRUBIN 1 - (mg/dL , ref. neg) Not Available [address], [address], 11/02/2024 17:34:21 11/03/19 25 11/02/2024 urina lysis , dipst ick, auto PROTEIN NEGATI VE - (mg/dL , ref. neg) Not Available [address], [address], 11/02/2024 17:34:21 11/03/19 25 11/02/2024 urina lysis , dipst ick, auto NITRITES NEGATI VE - (ref. neg) Not Available [address], [address], 11/02/2024 17:34:21 11/03/19 25 11/02/2024 urina lysis , dipst ick, auto KETONES NEGATI VE - (mg/dL , ref. neg) Not Available [address], [address], 11/02/2024 17:34:21 11/03/19 25 11/02/2024 urina lysis , dipst ick, auto GLUCOSE NEGATI VE - (mg/dL , ref. neg) Not Available [address], [address], 11/02/2024 17:34:21 11/03/19 25 11/02/2024 urina lysis , dipst ick, auto pH 6 - (ref. 5.0-7. 0) Not Available [address], [address], 11/02/2024 17:34:21 11/03/19 25 11/02/2024 urina lysis , dipst ick, auto SPECIFIC GRAVITY 1.010 (ref. 1.010- 1.030) Not Available [address], [address], 11/02/2024 17:34:21 11/03/19 25 11/02/2024 urina lysis , dipst ick, auto LEUKOCYTES Neg - (Queenie/d L, ref. neg) Not Available [address], [address], 11/02/2024 17:34:21 11/03/19 25 11/02/2024 pregn jerome test, urine Human Chorionic Gonadotropin (hCG) NEGATI VE Not Available [address], [address], 11/02/2024 17:34:03 06/07/20 25 06/10/2025 CULTU RE THROA T culture, throat SEE NOTE abnormal CULTU RE, THROA T Micro Numbe r: [id number] Test Statu s: Final Speci men [...] eal veda also prese nt. Not Available [facility] [address], [place], [address], 06/10/2025 06:38:53 06/07/20 25 06/07/2025 rapid strep group A, throa t Group A Strep NEGATI VE Not Available [address], [address], 06/07/2025 15:13:59 06/07/20 25 06/07/2025 influ opal virus A + B + SARS- CoV-2 (COVI D19) Ag panel , rapid IA, upper respi rator y speci men Flu A NEGATI VE Not Available [address], [address], 06/07/2025 15:13:50 06/07/20 25 06/07/2025 influ opal virus A + B + SARS- CoV-2 (COVI D19) Ag panel , rapid IA, upper respi rator y speci men Flu B NEGATI VE Not Available [address], [address], 06/07/2025 15:13:50 06/07/20 25 06/07/2025 influ opal virus A + B + SARS- CoV-2 (COVI D19) Ag panel , rapid IA, upper respi rator y speci men Covid-19 NEGATI VE Not Available [facility]_ [address], [address], 06/07/2025 15:13:50 Result Notes None recorded. Problems Name Problem SNOMED Code Status Onset Date Resolution Date Notes Provider Name and Address Organization Details Recorded Time Streptococcal infectious disease 88465652 Active 2024 DIONNE Muñoz - .[facility] 14:39:50 Problem Notes None recorded. Procedures Surgical History Date Name Laterality Status Provider Name and Address Organization Details Recorded Time 11/29/19 . Laceration - Dermabond completed Lars Oneil [place] - .[facility] 11/28/2024 15:09:59 10/11/19 . Venipuncture completed Kishor Troncoso [place] - .[facility] 10/10/2024 15:05:59 08/07/19 . Venipuncture completed Malika Willis [place] - .[facility] 08/07/2024 12:42:24 03/14/20 24 . Venipuncture completed Terrie Connors [address], [place], [address] - .[facility] 03/14/2024 13:10:59 Imaging Results None recorded. Procedure [...] height Body mass index (BMI) Body weight Respiratory rate Heart rate Body temperature Oxygen saturation Systolic And Diastolic Provider Name and Address Organization Details Last Updated DateTime 5 152.4 cm 21.5 kg/m2 32550.1 6 g 18 /min 83 /min 97.5 [degF] 99 % 100/63 mm[Hg] Kishor huff [place] - .[facility] 5 14:50:04 Date Recorded Body height Body mass index (BMI) Body weight Heart rate Body temperature Respiratory rate Oxygen saturation Systolic And Diastolic Provider Name and Address Organization Details Last Updated DateTime 5 152.4 cm 21.5 kg/m2 84707.1 6 g 67 /min 98.4 [degF] 16 /min 98 % 93/58 mm[Hg] Mallorie Peña [place] - .[facility] 5 09:23:08 Date Recorded Body height Body mass index (BMI) Body weight Heart rate Body temperature Respiratory rate Oxygen saturation Systolic And Diastolic Provider Name and Address Organization Details Last Updated DateTime 5 152.4 cm 21.5 kg/m2 33101.1 6 g 78 /min 98 [degF] 16 /min 98 % 95/78 mm[Hg] Fernanda Cornel [place] - .[facility] 5 17:32:00 Date Recorded Body height Body mass index (BMI) Body weight Respiratory rate Oxygen saturation Heart rate Body temperature Systolic And Diastolic Provider Name and Address Organization Details Last Updated DateTime 5 152.4 cm 21.5 kg/m2 32466.1 6 g 16 /min 98 % 74 /min 98.6 [degF] 109/73 mm[Hg] Lars Thad [place] - .[facility] 15:04:44 Date Recorded Body height Body mass index (BMI) Body weight Heart rate Body temperature Respiratory rate Oxygen saturation Systolic And Diastolic Provider Name and Address Organization Details Last Updated DateTime 5 154.94 cm 20.8 kg/m2 31241.1 6 g 73 /min 97.9 [degF] 16 /min 99 % 112/74 mm[Hg] Merissa Badillo [place] - .[facility] 15:11:31 Social History Question Answer Notes LastModified by Organizat ion Details LastModified Time Tobacco Smoking Status Current Some Day Smoker DIONNE Khanna - .[facility] 05/17/2022 14:47:05 RISK LEVEL - Segmentation Level 1 - Healthy [id number] Information not available 06/10/2022 What Was The Date Of Your Most Recent Tobacco Screening? 10/23/2024 Information not available 10/23/2024 Has Tobacco Cessation Counseling Been Provided? Yes [email or web address] Information not available 05/17/2022 On What Date Was Tobacco Cessation Counseling Provided? 10/23/2024 [email or web address] Information not available 10/23/2024 Sex: Unknown Functional Status None recorded. Mental Status None recorded. Family History Relationship Description Onset Age of this Age Resolved Age Notes LastModified by Organization Details LastModified Time Father No current problems or disability [email or web address] Not available 05/04 14:46:56 Mother No current problems or disability Not available 05/04 14:46:56 Medical History No medical history recorded. Gynecological HistoryNo gynecological history recorded. Obstetrics History GPAL:G 0 P 0 0 0 0 Immunizations Vaccine Type Date Status Note Provider Nam e and Address Organization Details Recorded Time Influenza, split virus, quadrivalent, PF 04/13/2020 completed Not Available [facility] 15:03:33 COVID-19, mRNA, LNP-S, PF, 100 mcg/0.5mL dose or 50 mcg/0.25mL dose 09/05/2020 completed Not Available [facility] 15:03:33 COVID-19, mRNA, LNP-S, PF, 100 mcg/0.5mL dose or 50 mcg/0.25mL dose 10/03/2020 completed Not Available [facility] 15:03:33 COVID-19, mRNA, LNP-S, PF, 30 mcg/0.3 mL dose 06/18/2021 completed Not Available [facility] 15:03:33 Influenza, MDCK, quadrivalent, PF 04/12/2022 completed Not Available [facility] 15:03:33 COVID-19, mRNA, LNP-S, bivalent, PF, 30 mcg/0.3 mL dose 04/12/2022 completed Not Available [facility] 15:03:33 Influenza, MDCK, trivalent, PF 04/08/2025 completed Not Available [facility] 2024 15:03:33 Tdap 11/28/2024 completed DIONNE Wyatt - .[facility] 11/28/2024 15:12:15 Past Encounters Encounter ID Performer Location Encounter Start Date Encounter Closed Date Diagnosis/Indication Diagnosis SNOMED-CT Code Diagnosis ICD10 Code Diagnosis IMO Codes Diagnosis Note [id number] Jcarlos GRIER [facility] [address] [place] [address] 05/17/2022 14:23:48 05/17/2022 14:54:01 Acute urinary tract infection 527520298 N39.0 [id number] Terrie Connors DO [facility]_ [facility] [address] [place] [address] 03/14/2024 12:15:11 03/14/2024 12:57:22 Venereal disease screening 275203020 Z11.3 Exposure to chlamydia 26 95288470 104 Z20.2 [id number] Waylon Maxwell DO [facility]_ [address] [place] [address] 08/07/2024 11:32:41 08/07/2024 12:34:43 Venereal disease screening 926517501 Z11.3 [id number] Frank Mullins MD [facility] [address] [place] [address] 10/10/2024 14:36:59 10/10/2024 15:01:12 Venereal disease screening 762287765 Z11.3 [id number] Carolina Humphreys DO [address] [address] 10/23/2024 09:11:27 10/23/2024 09:25:15 Acute urinary tract infection 132899327 N39.0 Pt evaluated for UTI in the past (on 05/25) where Rx'd Macrobid. UCx grew >100K E. Coli with resistance to Bactrim and Ampicillin [id number] Julius Sosa MD [facility] [address] [place] [address] 11/02/2024 17:13:17 11/02/2024 17:43:30 Dysuria 88656890 R30.0 [id number] Robb Mercado MD [facility] [address] [place] [address] 11/28/2024 14:50:12 11/28/2024 15:11:42 Administration of tetanus vaccine 917698821 Z23 Laceration of left hand 0624254233 0787277 S61.412A 40896434 [id number] Julius Sosa MD [address] [address] 06/07/2025 14:56:17 06/07/2025 15:36:16 Viral disease 93101024 B34.9 52369 Health Concerns Section Related Observation LastModified by Organization Detai ls LastModified Time None Recorded Concern Status LastModified by Organization Details LastModified Time None Recorded Advance Directives Directive None Recorded Payers Insurance Date Sequence Insurance Name Policy Number Policy Wyman Covered Member ID Wyman Member ID Guarantor Name 06/07/[address] [facility] [id number] Agata Tony [id number] Agata Tony 05/17/2022 1 *SELF PAY* Em harmeet Fishtierney 08/07/[address] [facility] MA-BKN Agata Fishinoflako [id number] Agata Tony 08/07/2024 1 [facility] Agata Fishtierney [id number] Agata Tony 03/14/2024 1 [facility] [id number] Cintia Scherer Cecily [id number] Agata Tony Notes Date Note Type Note Provider Name and Address Organization Details Recorded Time 10/10/2024 text/html STD Testing/Counseling/Qu estionnaire - cmdReported by PatientHPIFor recent testing for std?, patient reports(+) recent std testing. For timing, patient reportsno symptoms: asymptomatic testing. For recent exposure to std?, patient reportspossible std exposure. For symptoms, patient reportsno nausea,no vomiting,no dysuria,no back pain,no fever,no abdominal pain,no genital discharge, andno genital lesions. For sexual partner hx, patient reportssexually active with males. For hsv history, patient reportsno hx of cold sores,no hx of genital herpes, andno hx of antibody to hsv 1 or 2. For std history, patient reportsno hx of std. 29 y/o F coming in for asx STD testing. Fran GRIER [address] [place] [address],[address] [facility], [place], [address] - .[facility] 10/10/2024 15:08:26 10/23/2024 text/html Dysuria - cmdRep orted by PatientHPIFor patient presents with, patient reportsdysuria which began yesterday. For pertinent findings, patient reportsno urinary urgency,no hematuria,no history of recurrent uti,no fever,no chills,no nausea,no vomiting,no abdominal pain,no back pain,no dizziness,no lightheadedness,no genital pain,no genital discharge, andno recent potential std exposure. For menstrual history, patient reportsnot menstruating.29 yo F presents w dysuria and urinary frequency x yesterday. No OTC use. Carolina Humphreys DO [address] [facility],[address] [place] [address], [place], [address], [facility] - .[facility] 10/23/2024 09:37:06 11/02/2024 text/html Dysuria - cmdRep orted by PatientHPIFor patient presents with, patient reportsdysuria which began 2-3 days ago. For pertinent findings, patient reports(+) urinary frequencyand(+) urinary urgencybut reportsno hematuria,no history of recurrent uti,no fever,no chills,no nausea,no vomiting,no abdominal pain,no back pain,no dizziness,no lightheadedness,no genital pain,no genital discharge, andno recent potential std exposure. For menstrual history, patient reportsnot menstruating.Pt is currently here for a follow up visit regarding one week ago. Pt did test postive for a UTI. Pt finished course of antibiotics. Pt is currently having a Yeast infection. Pt has symptoms recurrenti ng rn for possibly a another uti Julius Sosa MD [address], [address], [facility] - .[facility] 11/02/2024 19:45:39 11/28/2024 text/html Hand complaint - cmdReported by PatientIFor patient presents with, patient reportsleft hand complaint which began __ (onset: 20 mins ago). For pertinent findings, patient reportsno extremity numbness and weaknessandno limited rom. For tetanus status, patient reportsnot up to date.29 Y/O F c/o (+)superficial cut to the Lt palm x 20 minutes ago Pt. states that she was trying to cut the spikes off a flower and cut herself with metal gustavo. Nona GRIER [address] [facility],[address] [place] [address], [place], [address], [facility] - .[facility] 11/28/2024 22:46:59 06/07/2025 text/html Sore throat - cmdReported by [...] mild relief of sxs. Julius Sosa MD [address] [place] [address] [facility],[address], [place], [address] - .[facility] 06/07/2025 18:52:44 OBGyn Episode No OBEpisode recorded.
--- OUTSIDE RECORDS SUMMARY | 2025-06-28 00:04 | XMS_ITS | Encounter Summary ---
Author Organization [facility] Address [address] [place] [address] Phone Care Team Providers Care Laminating Machine Operator Name Role Phone Nicolás Dee Primary Care Provider Unavailabl e Reason for Visit * Reason Onset Date Comments Medication Refill 04/17/2021 Encounter Details Date Type Department Care Team ([facility] Contact Info) Description 04/17/2021 Refill [facility] [address] [place] [address] Gui Odell MD [address] [place] [address] Anxiety and depression Social History Tobacco Use [...] depression documented in this encounter Care Teams Laminating Machine Operator Relationship Specialty Start Date End Date Nicolás Dee DO PCP - General Family Medicine 10/26/19 documented as of this encounter
--- OUTSIDE RECORDS SUMMARY | 2025-06-28 00:04 | XMS_ITS | Encounter Summary ---
Author Organization [facility] Address [address] [place], [place] [id number] Phone Care Team Providers Care Proofer Name Role Phone Lashawn Johnson MD Primary Care Provider Unavailabl e Encounter Details Date Type Department Care Team (Late st Contact Info) Description 03/07/2013 Documentation [facility] Family Medicine [address] [place] [address] Family Medicine, Physician [address] [place] [address] Social History Tobacco Use Types Packs/Day Years [...] on filedocumented in this encounter Care Teams Proofer Relationship Specialty Start Date End Date Lashawn Johnson MD PCP - General 02/11/17 03/03/18 documented as of this encounter
--- OUTSIDE RECORDS SUMMARY | 2025-06-28 00:04 | XMS_ITS | Encounter Summary ---
Author Organization [facility] Address [address] [place] [address] Phone Care Team Providers Care Patch Washer Name Role Phone Lashawn Johnson MD Primary Care Provider Unavailabl e Encounter Details Date Type Department Care Team (Late st Contact Info) Description 02/17/2017 Conversion Encounter [address] [address] Social History Tobacco Use Types Packs/Day Years Used Date Smoking Tobacco: Never Comments:Never smoker Comments Unknown Sex and Gender Information Value Date Recorded Sex Assigned at Not on file Legal Sex Female 5:25 PM EDT Gender Identity Not on file Sexual Orientation Not on file documented as of this encounter Plan of Treatment Not on file documented as of this encounter Visit Diagnoses Not on filedocumented in this encounter Care Teams Patch Washer Relationship Specialty Start Date End Date Lashawn Johnson MD PCP - General 02/11/17 03/03/18 documented as of this encounter
--- OUTSIDE RECORDS SUMMARY | 2025-06-28 00:04 | XMS_ITS | Encounter Summary ---
Author Organization [facility] Address [address] [place], [place] [phone] Phone Care Team Providers Care Managed Care Liaison Name Role Phone Lashawn Johnson MD Primary Care Provider Unavailabl e Encounter Details Date Type Department Care Team (Late st Contact Info) Description 03/07/2013 Documentation [facility] [place] [facility] [address] [place] [address] Family Medicine, Physician [address] [place] [address] Social History Tobacco Use Types Packs/Day Years [...] on filedocumented in this encounter Care Teams Managed Care Liaison Relationship Specialty Start Date End Date Lashawn Johnson MD PCP - General 02/11/17 03/03/18 documented as of this encounter
--- OUTSIDE RECORDS SUMMARY | 2025-06-28 00:04 | XMS_ITS | Clinical Summary ---
Author Organization [facility] Address [address] [place] [address] Phone Care Team Providers Care Med Spec Name Role Phone Nicolás Dee Primary Care Provider Unavailabl e Allergies No known active allergies Medications FLUoxetine (PROzac) 40 MG capsuleIndicati ons:Anxiety and depression Take 1 capsule (40 mg total) by mouth daily Max Daily Amount: 40 mg 90 capsule 08/11/2021 Active Family History Medical History Relation Name Comments Hypertension Maternal Grandmother Relation Name Status Comments Maternal Grandmother Social History Tobacco Use Types Packs/Day Years Used Date Smoking Tobacco: Some Days Smokeless Tobacco: Current Alcohol Use Standard Drinks/Week Comments Yes 0 (1 standard drink = 0.6 oz pur e alcohol) social Health Literacy Answer Date Recorded Trouble understanding healthcare information Not on file 12/02/2020 Inadequate Housing Answer Date Recorded Type of residence: Not on file 06/06/2022 Do you worry about losing your housing? Not on f ile 06/06/2022 Within the past 12 months, h ave you or the family members you live with been unable to get heat, electricity, or water when it was really needed? Not on file 06/06/2022 Comments Not on file 06/06/2022 Medication Challenges Answer Date Recor ded Medication [...] Something else 10/26/2019 1: 24 PM EDT Last Filed Vital Signs Vital Sign Reading Time Taken Comments Blood Pressure 93/60 01/24/2020 9:47 AM EDT Pulse 73 01/24/2020 9:47 AM EDT Temperature 36.7 C (98 F) 01/24/2020 9:47 AM EDT Respiratory Rate - - Oxygen Saturation 98% 01/24/2020 9:47 AM EDT Inhaled Oxygen Concentration - - Weight 44.5 kg (98 lb) 01/24/2020 9:47 AM EDT Height 154.9 cm (5' 1 ) 01/24/2020 9:47 AM EDT Body Mass Index 18.52 01/24/2020 9:47 AM EDT Plan of Treatment Health Maintenance Due Date Last Done Comments Measles, Mumps, Rubella Vacc ine (1 of 1 - Standard series) 1998 Varicella Vaccine (1 of 2 - 13+ 2-dose series) 2010 Hepatitis B Vaccine (1 of 3 - 19+ 3-dose series) 02/06/2016 DTaP,Tdap,and Td Vaccines (1 - Tdap) 2018 PAP SMEAR 2018 HPV Vaccine (1 - 3-dose SCDM series) 02/06/2024 Influenza Vaccine 03/04/2025 HIB Vaccine Aged Out No longer eligi ble based on patient's age to complete this topic Hepatitis A Vaccine Aged Out No longe r eligible based on patient's age to complete this topic Meningococcal B Vaccine Aged Out No l onger eligible based on patient's age to complete this topic Meningococcal Vaccine Aged Out No edwin thomas eligible based on patient's age to complete this topic Pneumococcal Vaccine: 0-49 years Aged Out No longer eligible based on patient's age to complete this topic Insurance [employer] Care Teams Med Spec Relationship Specialty Start Date End Date Nicolás Dee DO PCP - General Family Medicine 10/26/19
--- OUTSIDE RECORDS SUMMARY | 2025-06-28 00:04 | XMS_ITS | Data Portability ---
Author Organization [facility] Providers, [employer] - [facility] Address [address] [place] [address] Care Team Providers Care Manager Radio Name Role Phone MITESH DUMASA Primary Care Provider [phone] Assessment Encounter Date Assessment Date Assessment LastModified by Organization Details LastModified Time 03/01/2025 03/01/2025 20 -29 minutes was spent in review of documents, taking history, performing physical examination as appropriate, discussing plan with patient, referring to specialists as needed, ordering diagnostic testing as needed, and documenting the encounter. [email or web address] Not available 03/01/2025 20:23:21 Plan of Treatment Reminders Order Date Submit Date Provider Last Modified By Organization Details Last Modified Time Details Appointments None recorded. Lab CBC w/ auto diff 2024 [facility], [address] [place] [address], [place], [address], 13:56:18 ferritin, serum or plasma 2024 025 [facility], [address] [facility], [facility] [place], [address], 13:56:19 iron + total iron-madie ng capacity (TIBC), serum 2024 025 [facility], [address] [facility], [place], [address], 13:56:19 hepatitis C Ab, signal-to- cutoff, serum or plasma [facility]24 [facility], [address], [place], [address], 13:56:13 HIV 1+2 AB + HIV 1 p24 Ag, qualitativ e immunoassa y, serum 2024 [facility], [address], [place], [address], 13:56:20 CT + NG RNA, PCR, unspecifie d specimen 2024 [facility], [address] [facility], [place], [address], 13:56:21 unlisted lab - trichomona s vaginalis 2024 [facility], [address] [place] [address], [place], [address], 13:56:21 treponema pallidum igg+igm Ab, serum 2024 [facility], [address] [place] [address], [place], [address], 13:56:14 HBsAg (hepatitis B surface Ag), serum 2024 [facility], [address] [place] [address], [place], [address], 13:56:14 CMP, serum or plasma 2024 [facility], [address] [facility], [place], [address], 13:56:15 hemoglobin A1C/hemogl obin total, QN, blood 2024 [facility], [address] [facility], [facility] [place], [address], 5 13:56:15 lipid panel, blood 2024 [facility], [address] [facility], [place], [address], 5 13:56:16 hepatitis B surface Ab, qualitativ e, serum 2024 025 [facility], [address] [facility], [place], [address], 5 13:56:17 TSH, serum or plasma 2024 025 [facility], [address] [place] [address], [facility] [place], [address], 13:56:17 hepatitis B core Ab, total, serum 2024 [facility], [address] [facility], [place], [address], 13:56:18 hepatitis C Ab, signal-to- cutoff, serum or plasma 2023 024 [facility], [address] [place] [address], [place], [address], 4 18:38:12 HIV 1+2 AB + HIV 1 p24 Ag, qualitativ e immunoassa y, serum 2023 024 [facility], [address] [place] [address], [place], [address], 4 18:38:17 CT + NG RNA, PCR, unspecifie d specimen 2023 024 [facility], [address] [facility], [facility], [place], [address], 4 18:38:18 unlisted lab - trichomona s vaginalis 2023 024 [facility], [address], [facility], [place], [address], 4 18:38:18 treponema pallidum igg+igm Ab, serum 2023 024 [facility], [address], [facility], [place], [address], 4 18:38:13 HBsAg (hepatitis B surface Ag), serum 2023 024 [facility], [address] [facility], [facility], [place], [address], 4 18:38:13 CMP, serum or plasma 2023 024 [facility], [address], [facility], [place], [address], 4 18:38:13 hemoglobin A1C/hemogl obin total, QN, blood 2023 024 [facility], [address] [facility], [facility], [place], [address], 4 18:38:14 lipid panel, blood 2023 024 [facility], [address] [facility], [facility], [place], [address], 4 18:38:14 iron + total iron-madie ng capacity (TIBC), serum 2023 024 [facility], [address] [facility], [facility], [place], [address], 4 18:38:15 vitamin B12 + folate, serum or blood 2023 024 [facility], [address] [place] [address], [place], [address], 4 18:38:15 hepatitis B surface Ab, qualitativ e, serum 2023 024 [facility], [address] [place] [address], [facility], [place], [address], 4 18:38:16 TSH, serum or plasma 2023 024 [facility], [address] [place] [address], [place], [address], 4 18:38:16 CBC 2023 024 [facility], [address] [place] [address], [facility] [place], [address], 4 18:38:[address] referral 2024 025 [facility], [address], [place], [address], 5 10:06:53 dermatolog ist referral 2023 024 [facility], [address], [facility] [address], [place], [address], 4 10:36:18 Procedures None recorded. Surgeries None recorded. Imaging None recorded. Medication Orders fluoxetine 40 mg capsule 2024 025 [facility], [address] [place] [address], [address], 5 13:56:28 fluoxetine 40 mg capsule 2024 025 [facility], [address] [place] [address], [address], 5 13:04:50 fluoxetine 40 mg capsule 2023 024 [facility], [address] [place] [address], [address], 4 12:55:41 Diflucan 150 mg tablet 2023 024 [facility], [address] [place] [address], [address], 4 09:46:39 Patient TargetsNo targets recorded. Patient InstructionsNo instructions recorded. Reason for Referral Non Acoustic Operator Referral for S kin lesion Referring Physician: Raissa Dumas, Internal Medicine, Encounter Date: 12/22/2023 Psychiatrist Referral for De pressive disorder Referring Physician: Maria Del Carmen Lunsford, Internal Medicine, Encounter Date: 03/01/2025 Results Created Date Observation Date Name Description Value Unit Range Abnormal Flag Note LastModifiedBy Organization Detail LastModifiedTime 12/22/19 24 12/23/2023 HEPAT ITIS C AB HCV S/co ratio 0.09 S/co 0.00-0 .99 normal Not Available [address], [place], [address], 12/26/2023 18:38:12 12/22/19 24 12/23/2023 HEPAT ITIS C AB HCV interpretati on [...] lucy curre nt infec tion. Not Available [address], [place], [address], 12/26/2023 18:38:12 12/22/19 24 12/23/2023 HEP B SURFA CE ANTIG EN hep B surface Ag NONREA CTIVE nonrea ctive normal Not Available [address], [place], [address], 12/26/2023 18:38:12 12/22/19 24 12/23/2023 SYPHI LIS SCREE N treponema pallidum Ab clia NEGATI VE negati ve normal This is the recom aaron d initi al scree vicente test for syphi lis follo wing the rever se-se quenc e algor ithm. Negat gillian: No serol ogic evide nce of Trepo nema palli dum antib odies . No follo w-up is neces viri cole s clini juventino indic ated (e.g. , incub ating or early prima ry infec tion) . Posit gillian: Detec table prese nce of Trepo nema palli dum antib odies . Addit ional testi ng accor ding to the rever se-se quenc e syphi lis scree vicente algor ithm will follo w and must be consi dered befor e makin g a final diagn osis. This inclu [...] test will be perfo rmed. Not Available [address], [place], [address], 12/26/2023 18:38:13 12/22/19 24 12/22/2023 COMPR EHENS GILLIAN METAB OLIC PANEL sodium 140 mmol/ L 135-14 5 normal Not Available [address], [place], [address], 12/26/2023 18:38:13 12/22/19 24 12/22/2023 COMPR EHENS GILLIAN METAB OLIC PANEL potassium 3.9 mmol/ L 3.5-5. 3 normal Not Available [address], [address], 12/26/2023 18:38:13 12/22/19 24 12/22/2023 COMPR EHENS GILLIAN METAB OLIC PANEL chloride 106 mmol/ L 96-108 normal Not Available [address], [address], 12/26/2023 18:38:13 12/22/19 24 12/22/2023 COMPR EHENS GILLIAN METAB OLIC PANEL CO2 22 mmol/ L 22-31 normal Not Available [address], [place], [address], 12/26/2023 18:38:13 12/22/19 24 12/22/2023 COMPR EHENS GILLIAN METAB OLIC PANEL anion gap 12 mmol/ L 5-17 normal Not Available [address], [address], 12/26/2023 18:38:13 12/22/19 24 12/22/2023 COMPR EHENS GILLIAN METAB OLIC PANEL glucose 83 mg/dL 70-99 normal Not Available [address], [address], 12/26/2023 18:38:13 12/22/19 24 12/22/2023 COMPR EHENS GILLIAN METAB OLIC PANEL BUN 8 mg/dL 7-23 normal Not Available [address], [address], 12/26/2023 18:38:13 12/22/19 24 12/22/2023 COMPR EHENS GILLIAN METAB OLIC PANEL creatinine 0.68 mg/dL 0.50-1 .30 normal Not Available [address], [place], [address], 12/26/2023 18:38:13 12/22/19 24 12/22/2023 COMPR EHENS GILLIAN METAB OLIC PANEL calcium 9.1 mg/dL 8.4-10 .5 normal Not Available [address], [address], 12/26/2023 18:38:13 12/22/19 24 12/22/2023 COMPR EHENS GILLIAN METAB OLIC PANEL total protein 6.7 g/dL 6.0-8. 3 normal Not Available [address], [address], 12/26/2023 18:38:13 12/22/19 24 12/22/2023 COMPR EHENS GILLIAN METAB OLIC PANEL albumin 4.6 g/dL 3.3-5. 0 normal Not Available [address], [address], 12/26/2023 18:38:13 12/22/19 24 12/22/2023 COMPR EHENS GILLIAN METAB OLIC PANEL total bilirubin 0.3 mg/dL 0.2-1. 2 normal Not Available [address], [address], 12/26/2023 18:38:13 12/22/19 24 12/22/2023 COMPR EHENS GILLIAN METAB OLIC PANEL AST (SGOT) 14 U/L 10-40 normal Not Available [facility] [address], [place], [address], 12/26/2023 18:38:13 12/22/19 24 12/22/2023 COMPR EHENS GILLIAN METAB OLIC PANEL ALT (SGPT) 8 U/L 10-45 low Not Available [facility] [address], [place], [address], 12/26/2023 18:38:13 12/22/19 24 12/22/2023 COMPR EHENS GILLIAN METAB OLIC PANEL alk phos 58 U/L 40-120 normal Not Available [facility] [address], [place], [address], 12/26/2023 18:38:13 12/22/19 24 12/22/2023 COMPR EHENS GILLIAN METAB OLIC PANEL eGFR 123 mL/mi n/1.7 3m2 >=60 normal The estim ated glome rular filtr ation rate (eGFR ) is calcu lated using the 2020 CKD-E PI creat inine equat ion, which does not have a coeff icien t for race and is valid ated in indiv idual s 18 years of age and older (N Engl J Med 2020; 385:1 737-1 749). Creat inine -base d eGFR may be inacc urate in vario us situa tions inclu ding but not limit ed to extre mes of muscl e mass, alter ed dieta ry prote in intak e, or medic ation s that affec t renal tubul ar creat inine secre tion. Not Available [facility] [address], [place], [address], 12/26/2023 18:38:13 12/22/19 24 12/22/2023 HEMOG LOBIN A1C HGB A1C 5.4 % 4.0-5. 6 normal Metho d: Immun oassa y Refer ence Range 4.0-5 .6% High risk (pred iabet ic) 5.7-6 .4% Diabe tic, diagn ostic >=6.5 % ADA diabe tic treat ment goal <7.0% The Hemog lobin A1c testi ng is NGSP- certi fied. Refer ence range s are based upon the 2010 recom menda tions of the Ameri can Diabe melo Assoc iatio n. Inter preta tion may vary for child bernard and adole scent s. Not Available [facility] [address], [place], [address], 12/26/2023 18:38:14 12/22/19 24 12/22/2023 HEMOG LOBIN A1C estimated average glucose 108 mg/dL 68-114 normal The Estim ated Rozet ge Gluco se (eAG) or Mean Plasm a Gluco se (MPG) value is calcu lated from the hemog lobin A1c value and cover s the same time perio d. The Ameri can Diabe melo Assoc iatio n (ADA) and other profe ssion al organ izati ons recom mend repor ting the eAG with the HgbA1 c. Not Available [address], [place], [address], 12/26/2023 18:38:14 12/22/19 24 12/22/2023 LIPID PROFI LE cholesterol 174 mg/dL <=199 normal Inter preti ve Comme nt: Accep table : <200 mg/dL (for adult s) ; <170 mg/dL (for child bernard) Not Available [address], [place], [address], 12/26/2023 18:38:14 12/22/19 24 12/22/2023 LIPID PROFI LE HDL cholesterol 59 mg/dL >=51 normal Inter preti ve Comme nt: HDL zaynab stero l less than 40 mg/dL is a risk facto r for cardi ovasc ular disea se Not Available [address], [place], [address], 12/26/2023 18:38:14 12/22/19 24 12/22/2023 LIPID PROFI LE triglyceride s 95 mg/dL <=149 normal Inter preti ve Comme nt: Accep table : <150 mg/dL (for adult s) ; < 90 mg/dL (for child bernard) Trigl yceri de daysi ntrat ion can be influ enced when measu red in the non-f astin g state . Not Available [address] [facility], [place], [address], 12/26/2023 18:38:14 12/22/19 24 12/22/2023 LIPID PROFI LE LDL cholesterol (calc) 98 mg/dL <=99 normal Optim al LDL Zaynab stero l (LDL- C) All Patie nts: < 100 mg/dL High Risk ASCVD : < 70 mg/dL Very High Risk ASCVD : < 55 mg/dL Consi vonda Famil ial Hyper zaynab stero lemia when LDL-C > 190 mg/dL . The calcu latio n for LDL zaynab stero l is based on the [facility] on/NI H equat ion (HERMINIO Cardi ol. 20;5( 5):54 0?548 . doi:1 0.100 Dionne/walker ramirez io.00 13 Not Available [facility] [address], [place], [address], 12/26/2023 18:38:14 12/22/1912/22/2023 LIPID PROFI LE non-HDL cholesterol 115 mg/dL <=129 normal Optim al Non-H DL Zaynab stero l (Non- HDL-C ) All Patie nts: < 130 mg/dL High Risk ASCVD : < 100 mg/dL Very High Risk ASCVD : < 85 mg/dL Consi vonda Famil ial Hyper zaynab stero lemia when Non-H DL-C > 220 mg/dL . Non-H DL zaynab stero l is a mc targe t for cardi ovasc ular risk reduc tion. The sugge sted cutof f point s are based on recom menda tions from the [place] ge of Cardi ology /Amer ican Heart Assoc iatio n (ACC/ AHA) guide lines on the manag ement of blood zaynab jackson l [Circ ulati on. 2019; 139:e 1082- e1143 ]. Not Available [address], [place], [address], 12/26/2023 18:38:14 12/22/19 24 12/22/2023 IRON TIBC PANEL iron 43 ug/dL 30-160 normal Not Available [address], [place], [address], 12/26/2023 18:38:15 12/22/19 24 12/22/2023 IRON TIBC PANEL UIBC 358 ug/dL 110-37 0 normal Not Available [address], [place], [address], 12/26/2023 18:38:15 12/22/19 24 12/22/2023 IRON TIBC PANEL TIBC 401 ug/dL 220-43 0 normal Not Available [address], [place], [address], 12/26/2023 18:38:15 12/22/19 24 12/22/2023 IRON TIBC PANEL % saturation, iron 11 % 14-50 low Not Available [address], [place], [address], 12/26/2023 18:38:15 12/22/19 24 12/22/2023 B12 FOLAT E B12 318 pg/mL 232-12 45 normal Not Available [address], [address], 12/26/2023 18:38:15 12/22/19 24 12/22/2023 B12 FOLAT E folate 16.3 NG/mL >=4.7 normal Not Available [address], [address], 12/26/2023 18:38:15 12/22/19 24 12/23/2023 HEP B SURFA CE AB hep B surface Ab NONREA CTIVE nonrea ctive normal Not Available [address], [place], [address], 12/26/2023 18:38:16 12/22/19 24 12/22/2023 TSH - THYRO ID STIMU LATIN G HORMO NE TSH 2.60 uIU/m L 0.27-4 .20 normal Not Available [address], [place], [address], 12/26/2023 18:38:16 12/22/19 24 12/22/2023 CBC WBC 5.74 K/uL 3.80-1 0.50 normal Not Available [address], [address], 12/26/2023 18:38:17 12/22/19 24 12/22/2023 CBC RBC 4.26 M/uL 3.80-5 .20 normal Not Available [address], [place], [address], 12/26/2023 18:38:17 12/22/19 24 12/22/2023 CBC HGB 12.2 g/dL 11.5-1 5.5 normal Not Available [address], [address], 12/26/2023 18:38:17 12/22/19 24 12/22/2023 CBC HCT 37.3 % 34.5-4 5.0 normal Not Available [address], [address], 12/26/2023 18:38:17 12/22/19 24 12/22/2023 CBC MCV 87.6 fL 80.0-1 00.0 normal Not Available [address], [place], [address], 12/26/2023 18:38:17 12/22/19 24 12/22/2023 CBC MCH 28.6 pg 27.0-3 4.0 normal Not Available [address], [place], [address], 12/26/2023 18:38:17 12/22/19 24 12/22/2023 CBC MCHC 32.7 gm/dL 32.0-3 6.0 normal Not Available [address], [place], [address], 12/26/2023 18:38:17 12/22/19 24 12/22/2023 CBC RDW 13.6 % 10.3-1 4.5 normal Not Available [address], [place], [address], 12/26/2023 18:38:17 12/22/19 24 12/22/2023 CBC plt 254 K/uL 150-40 0 normal Not Available [address], [place], [address], 12/26/2023 18:38:17 12/22/19 24 12/22/2023 HIV AG/AB SCREE N BY CMIA HIV [...] . This is a preli minar y kris t. [facility] er confi rmato ry testi ng accor natalie to the [facility] HIV testi ng algor ithm will follo w, and such confi rmato ry resul ts must be consi dered in makin g a diagn osis relat ed to HIV infec tion. Furth er HIV tests inclu de HIV-1 /HIV- 2 antib caro diffe renti ation immun oassa y and subse quent nucle ic acid testi ng if neede d. This resul t shoul d be inter prete d in conju nctio n with the patie nt?s clini srinivasa prese ntati on, histo ry, and other labor atory resul ts. If the resul t is incon siste nt with clini srinivasa evide nce, addit ional testi ng is sugge sted to confi rm the resul t. Not Available [address], [address], 12/26/2023 18:38:17 12/22/19 24 12/23/2023 CHLAM YDIA/ G.C. AMPLI FICAT ION source amplificatio n URINE [...] nt manag ement decis ions. Not Available [address], [address], 12/26/2023 18:38:18 12/22/19 24 12/23/2023 CHLAM YDIA/ G.C. AMPLI FICAT ION chlamydia [...] nts <14 years of age Not Available [facility] [address] [place], [address], 12/26/2023 18:38:18 12/22/19 24 12/23/2023 CHLAM YDIA/ G.C. AMPLI FICAT ION GC [...] nts <14 years of age. Not Available [facility] [address] [place], [address], 12/26/2023 18:38:18 12/22/19 24 12/26/2023 TRICH OMONA S VAGIN DELPHINE source amplificatio n URINE normal Not Available [facility] [address], [place], [address], 12/26/2023 18:38:18 12/22/19 24 12/26/2023 TRICH OMONA S VAGIN DELPHINE trichomonas vaginalis [...] nts <14 years of age. Not Available [address], [address], 12/26/2023 18:38:18 04/08/20 25 04/09/2025 HEPAT ITIS C AB HCV S/co ratio 0.06 S/co 0.00-0 .79 normal Not Available [address], [place], [address], 04/10/2025 13:56:13 04/08/2004/09/2025 HEPAT ITIS C AB [...] lucy curre nt infec tion. Not Available [facility] [address], [place], [address], 04/10/2025 13:56:13 04/08/2004/09/2025 HEP B SURFA CE ANTIG EN hep B surface Ag NONREA CTIVE nonrea ctive normal Not Available [facility] [address], [place], [address], 04/10/2025 13:56:14 04/08/2004/09/2025 SYPHI LIS SCREE N treponema pallidum Ab clia NEGATI VE negati ve normal This is the recom aaron d initi al scree vicente test for syphi lis follo wing the rever se-se quenc e algor ithm. Negat gillian: No serol ogic evide nce of Trepo nema palli dum antib odies . No follo w-up is neces viri cole s clini juventino indic ated (e.g. , incub ating or early prima ry infec tion) . Posit gillian: Detec table prese nce of Trepo nema palli dum antib odies . Addit ional testi ng accor ding to the rever se-se quenc e syphi lis scree vicente algor ithm will follo w and must be consi dered befor e clin g a final diagn osis. This inclu [...] test will be perfo rmed. Not Available [facility] [address], [place], [address], 04/10/2025 13:56:14 04/08/2004/09/2025 COMPR EHENS GILLIAN METAB OLIC PANEL sodium 138 mmol/ L 135-14 5 normal Not Available [address], [place], [address], 04/10/2025 13:56:15 04/08/2004/09/2025 COMPR EHENS GILLIAN METAB OLIC PANEL potassium 4.5 mmol/ L 3.5-5. 3 normal Not Available [address], [place], [address], 04/10/2025 13:56:15 04/08/20 25 04/09/2025 COMPR EHENS GILLIAN METAB OLIC PANEL chloride 104 mmol/ L 96-108 normal Not Available [address], [address], 04/10/2025 13:56:15 04/08/20 25 04/09/2025 COMPR EHENS GILLIAN METAB OLIC PANEL CO2 20 mmol/ L 22-31 low Not Available [address], [address], 04/10/2025 13:56:15 04/08/20 25 04/09/2025 COMPR EHENS GILLIAN METAB OLIC PANEL anion gap 14 mmol/ L 5-17 normal Not Available [address], [address], 04/10/2025 13:56:15 04/08/20 25 04/09/2025 COMPR EHENS GILLIAN METAB OLIC PANEL glucose 83 mg/dL 70-99 normal Not Available [address], [address], 04/10/2025 13:56:15 04/08/20 25 04/09/2025 COMPR EHENS GILLIAN METAB OLIC PANEL BUN 10 mg/dL 7-23 normal Not Available [address], [address], 04/10/2025 13:56:15 04/08/20 25 04/09/2025 COMPR EHENS GILLIAN METAB OLIC PANEL creatinine 0.87 mg/dL 0.50-1 .30 normal Not Available [address], [address], 04/10/2025 13:56:15 04/08/20 25 04/09/2025 COMPR EHENS GILLIAN METAB OLIC PANEL calcium 8.9 mg/dL 8.4-10 .5 normal Not Available [address], [place], [address], 04/10/2025 13:56:15 04/08/2004/09/2025 COMPR EHENS GILLIAN METAB OLIC PANEL total protein 7.0 g/dL 6.0-8. 3 normal Not Available [address], [address], 04/10/2025 13:56:15 04/08/20 25 04/09/2025 COMPR EHENS GILLIAN METAB OLIC PANEL albumin 4.1 g/dL 3.3-5. 0 normal Not Available [address], [address], 04/10/2025 13:56:15 04/08/20 25 04/09/2025 COMPR EHENS GILLIAN METAB OLIC PANEL total bilirubin 0.4 mg/dL 0.2-1. 2 normal Not Available [address], [address], 04/10/2025 13:56:15 04/08/20 25 04/09/2025 COMPR EHENS GILLIAN METAB OLIC PANEL AST (SGOT) 23 U/L 10-35 normal Not Available [address], [address], 04/10/2025 13:56:15 04/08/20 25 04/09/2025 COMPR EHENS GILLIAN METAB OLIC PANEL ALT (SGPT) 8 U/L 10-40 low Not Available [facility] [address], [place], [address], 04/10/2025 13:56:15 04/08/20 25 04/09/2025 COMPR EHENS GILLIAN METAB OLIC PANEL alk phos 58 U/L 40-120 normal Not Available [facility] [address], [place], [address], 04/10/2025 13:56:15 04/08/20 25 04/09/2025 COMPR EHENS GILLIAN METAB OLIC PANEL eGFR [...] Med 2020; 385:1 737-1 749). Not Available [address], [place], [address], 04/10/2025 13:56:15 04/08/2004/09/2025 HEMOG LOBIN A1C HGB A1C 5.4 % 4.0-5. 6 normal Metho d: Immun oassa y Refer ence Range 4.0-5 .6% High risk (pred iabet ic) 5.7-6 .4% Diabe tic, diagn ostic >=6.5 % ADA diabe tic treat ment goal <7.0% The Hemog lobin A1c testi ng is NGSP- certi fied. Refer ence range s are based upon the 2010 recom menda tions of the Ameri can Diabe melo Assoc iatio n. Inter preta tion may vary for child bernard and adole scent s. Not Available [facility] [address], [place], [address], 04/10/2025 13:56:15 04/08/2004/09/2025 HEMOG LOBIN A1C estimated average glucose 108 mg/dL 68-114 normal The Estim ated Rozet ge Gluco se (eAG) or Mean Plasm a Gluco se (MPG) value is calcu lated from the hemog lobin A1c value and cover s the same time perio d. The Ameri can Diabe melo Assoc iatio n (ADA) and other profe ssion al organ izati ons recom mend repor ting the eAG with the HgbA1 c. Not Available [address], [place], [address], 04/10/2025 13:56:15 04/08/2004/09/2025 LIPID PROFI LE cholesterol 219 mg/dL <=199 high Inter preti ve Comme nt: Optim al Daysi ntrat ion: <200 mg/dL (for adult s) ; <170 mg/dL (for child bernard) Not Available [address], [place], [address], 04/10/2025 13:56:16 04/08/20 25 04/09/2025 LIPID PROFI LE HDL cholesterol 53 mg/dL >=51 normal Inter preti ve Comme nt: HDL zaynab stero l less than 40 mg/dL in men and less than 50 mg/dL in women is a risk facto r for cardi ovasc ular disea se Not Available [address], [place], [address], 04/10/2025 13:56:16 04/08/20 25 04/09/2025 LIPID PROFI LE triglyceride s 155 mg/dL <=149 high Inter preti ve Comme nt: Optim al Daysi ntrat ion: <150 mg/dL (for adult s) ; < 90 mg/dL (for child bernard) Trigl yceri de daysi ntrat ion can be influ enced when measu red in the non-f astin g state . Not Available [facility] [address], [address], 04/10/2025 13:56:16 04/08/20 25 04/09/2025 LIPID PROFI LE LDL cholesterol (calc) 139 [...] zaynab stero l is based on the [facility] on/NI H equat ion (HERMINIO Cardi ol.;5( 5):54 0-548 . doi:1 0.100 1/walker ramirez io. 13 Not Available [address], [address], 04/10/2025 13:56:16 04/08/20 25 04/09/2025 LIPID PROFI LE non-HDL cholesterol 166 mg/dL [...] on recom menda tions from the [place] [facility] of Cardi ology /[facility] n (ACC/ AHA) guide lines on the manag ement of blood zaynab stero l [Circ ulati on. 2019; 139:e 1082- e1143 ], and 2021 ACC Exper t Conse nsus Decis ion Pathw ay [(J Am Kostas Cardi ol. 2021, 80 (47) 0661- 0401] Not Available [address] [place], [address], 04/10/2025 13:56:16 04/08/2004/09/2025 HEP B SURFA CE AB hep B surface Ab REACTI VE reacti ve normal Not Available [address], [place], [address], 04/10/2025 13:56:17 04/08/2004/09/2025 TSH - THYRO ID STIMU LATIN G HORMO NE TSH 1.68 uIU/m L 0.27-4 .20 normal Not Available [address], [address], 04/10/2025 13:56:17 04/08/2004/09/2025 HEP B CORE AB TOTAL hep B core Ab total NONREA CTIVE nonrea ctive normal Not Available [address], [address], 04/10/2025 13:56:18 04/08/20 25 04/09/2025 CBC WITH AUTO DIFF WBC 6.13 K/uL 3.80-1 0.50 normal Not Available [address], [address], 04/10/2025 13:56:18 04/08/20 25 04/09/2025 CBC WITH AUTO DIFF RBC 4.33 M/uL 3.80-5 .20 normal Not Available [address], [address], 04/10/2025 13:56:18 04/08/20 25 04/09/2025 CBC WITH AUTO DIFF HGB 12.1 g/dL 11.5-1 5.5 normal Not Available [address], [address], 04/10/2025 13:56:18 04/08/20 25 04/09/2025 CBC WITH AUTO DIFF HCT 39.6 % 34.5-4 5.0 normal Not Available [address], [place], [address], 04/10/2025 13:56:18 04/08/2004/09/2025 CBC WITH AUTO DIFF MCV 91.5 fL 80.0-1 00.0 normal Not Available [address], [place], [address], 04/10/2025 13:56:18 04/08/20 25 04/09/2025 CBC WITH AUTO DIFF MCH 27.9 pg 27.0-3 4.0 normal Not Available [address], [place], [address], 04/10/2025 13:56:18 04/08/20 25 04/09/2025 CBC WITH AUTO DIFF MCHC 30.6 g/dL 32.0-3 6.0 low Not Available [address], [place], [address], 04/10/2025 13:56:18 04/08/2004/09/2025 CBC WITH AUTO DIFF RDW 14.6 % 10.3-1 4.5 high Not Available [address], [place], [address], 04/10/2025 13:56:18 04/08/2004/09/2025 CBC WITH AUTO DIFF MPV 11.4 fL 7.0-13 .0 normal Not Available [address] [facility] [place], [address], 04/10/2025 13:56:18 04/08/20 25 04/09/2025 CBC WITH AUTO DIFF plt 333 K/uL 150-40 0 normal Not Available [address] [facility], [place], [address], 04/10/2025 13:56:18 04/08/20 25 04/09/2025 CBC WITH AUTO DIFF auto NRBC 0 /100_ WBCs 0-0 normal Not Available [address], [address], 04/10/2025 13:56:18 04/08/20 25 04/09/2025 CBC WITH AUTO DIFF auto NRBC # 0.00 K/uL 0.00-0 .00 normal Not Available [address], [place], [address], 04/10/2025 13:56:18 04/08/2004/09/2025 CBC WITH AUTO DIFF auto neutrophils % 50.0 % 43.0-7 7.0 normal Diffe renti al perce ntage s must be corre lated with absol native numbe rs for clini srinivasa signi fican ce. Not Available [address], [place], [address], 04/10/2025 13:56:18 04/08/20 25 04/09/2025 CBC WITH AUTO DIFF auto lymphocytes % 39.5 % 13.0-4 4.0 normal Not Available [address], [place], [address], 04/10/2025 13:56:18 04/08/20 25 04/09/2025 CBC WITH AUTO DIFF auto monocytes % 5.7 % 2.0-14 .0 normal Not Available [address], [address], 04/10/2025 13:56:18 04/08/20 25 04/09/2025 CBC WITH AUTO DIFF auto eosinophils % 3.6 % 0.0-6. 0 normal Not Available [address], [address], 04/10/2025 13:56:18 04/08/20 25 04/09/2025 CBC WITH AUTO DIFF auto basophils % 1.0 % 0.0-2. 0 normal Not Available [address], [address], 04/10/2025 13:56:18 04/08/20 25 04/09/2025 CBC WITH AUTO DIFF auto immature granulocytes % 0.2 % 0.0-0. 9 normal (Incl udes meta, myelo and promy elocy melo). Mild eleva tions in immat ure granu locyt es may be seen with many infla mmato ry proce sses and pregn jerome; clini srinivasa corre latio n ora sted. Not Available [address], [place], [address], 04/10/2025 13:56:18 04/08/20 25 04/09/2025 CBC WITH AUTO DIFF auto neutrophils # 3.07 K/uL 1.80-7 .40 normal Not Available [address], [place], [address], 04/10/2025 13:56:18 04/08/20 25 04/09/2025 CBC WITH AUTO DIFF auto lymphocytes # 2.42 K/uL 1.00-3 .30 normal Not Available [address], [address], 04/10/2025 13:56:18 04/08/20 25 04/09/2025 CBC WITH AUTO DIFF auto monocytes # 0.35 K/uL 0.00-0 .90 normal Not Available [address], [address], 04/10/2025 13:56:18 04/08/20 25 04/09/2025 CBC WITH AUTO DIFF auto eosinophils # 0.22 K/uL 0.00-0 .50 normal Not Available [address], [address], 04/10/2025 13:56:18 04/08/20 25 04/09/2025 CBC WITH AUTO DIFF auto basophils # 0.06 K/uL 0.00-0 .20 normal Not Available [address], [place], [address], 04/10/2025 13:56:18 04/08/20 25 04/09/2025 CBC WITH AUTO DIFF auto immature granulocytes # 0.01 K/uL 0.00-0 .07 normal Not Available [address], [place], [address], 04/10/2025 13:56:18 04/08/20 25 04/09/2025 LILI TIN SERUM ferritin 12 NG/mL 15-150 low Not Available [address], [address], 04/10/2025 13:56:19 04/08/20 25 04/09/2025 IRON TIBC PANEL iron 134 ug/dL 30-160 normal Not Available [address], [address], 04/10/2025 13:56:19 04/08/20 25 04/09/2025 IRON TIBC PANEL UIBC 372 ug/dL 110-37 0 high Not Available [address], [address], 04/10/2025 13:56:19 04/08/20 25 04/09/2025 IRON TIBC PANEL TIBC 506 ug/dL 220-43 0 high Not Available [address], [address], 04/10/2025 13:56:19 04/08/20 25 04/09/2025 IRON TIBC PANEL % saturation, iron 26 % 14-50 normal Not Available [address], [address], 04/10/2025 13:56:19 04/08/2004/09/2025 HIV AG/AB SCREE N [...] is a preli minar y resul t. [facility] confi rmato ry testi ng accor ding to the [facility] HIV testi ng algor ithm will follo w, and such confi rmato ry resul ts must be consi dered in makin g a diagn osis relat ed to HIV infec tion. [facility] HIV tests inclu de HIV-1 /HIV- 2 [...] confi rm the resul t. Not Available [address], [place], [address], 04/10/2025 13:56:20 04/08/2004/10/2025 TRICH OMONA S VAGIN DELPHINE source amplificatio [...] nt manag ement decis ions. Not Available [facility] [address], [place], [address], 04/10/2025 13:56:21 04/08/2004/10/2025 TRICH OMONA S VAGIN DELPHINE trichomonas vaginalis [...] nts <14 years of age. Not Available [facility] [address], [place], [address], 04/10/2025 13:56:21 04/08/2004/10/2025 CHLAM YDIA/ G.C. AMPLI FICAT ION source amplificatio n URINE [...] nt manag ement decis ions. Not Available [facility] [address], [place], [address], 04/10/2025 13:56:21 04/08/2004/10/2025 CHLAM YDIA/ G.C. AMPLI FICAT ION chlamydia [...] [facility]14 [facility] Not Available [address], [address], 04/10/2025 13:56:21 04/08/20 25 04/10/2025 CHLAM YDIA/ [...] nts <14 years of age. Not Available [address], [address], 04/10/2025 13:56:21 Result Notes None recorded. Problems Name Problem SNOMED Code Status Onset Date Resolution Date Notes Provider Name and Address Organization Details Recorded Time Anxiety 67433773 Active Bruno Oconnor [facility] Providers 4 09:12:39 Depressive disorder 47652205 Active [facility] 09:12:46 Problem Notes None recorded. Medical Equipment [...] Avai lable Vitals Date Recorded Body height Oxygen saturation Body temperature Heart rate Body mass index (BMI) Body weight Systolic And Diastolic Provider Name and Address Organization Details Last Updated DateTime 4 154.94 cm 98 % 98.6 [degF] 73 /min 19.6 kg/m2 63681.1 7 g 95/61 mm[Hg] Bruno Jude Anastasia [facility] Providers 4 09:16:26 Date Recorded Body height Body mass index (BMI) Body weight Body temperature Oxygen saturation Heart rate Systolic And Diastolic Provider Name and Address Organization Details Last Updated DateTime 5 154.94 cm 20 kg/m2 17052.3 5 g 98 [degF] 98 % 81 /min 105/73 mm[Hg] Azucena Hartley [facility] Providers 5 11:35:36 Social History Question Answer Notes LastModified by Organizat ion Details LastModified Time Tobacco Smoking Status Current Some Day Smoker Bruno Oconnor [facility] Providers 12/22/2023 09:09:38 What Type Of Diet [...] t available 12/22/2023 What is your occupation? [employer] Information not available 12/22/2023 What is your [...] Vaccine Type Date Status Note Provider Nam jose angel and Address Organization Details Recorded Time Influenza, MDCK, quadrivalent, PF 04/12/2022 completed JHONY Lee [facility] 12/22/2023 09:11:50 COVID-19, mRNA, LNP-S, PF, 100 mcg/0.5mL dose or 50 mcg/0.25mL dose 09/05/2020 completed Bruno Oconnor [facility] 12/22/2023 09:11:50 COVID-19, mRNA, LNP-S, PF, 100 mcg/0.5mL dose or 50 mcg/0.25mL dose 10/03/2020 completed Bruno Oconnor [facility] 12/22/2023 09:11:50 COVID-19, mRNA, LNP-S, PF, 30 mcg/0.3 mL dose 06/18/2021 completed Bruno Oconnor [facility] 12/22/2023 09:11:50 COVID-19, mRNA, LNP-S, bivalent, PF, 30 mcg/0.3 mL dose 04/12/2022 completed Bruno Lomaxullon Oconnor [facility] 12/22/2023 09:11:50 Influenza, split virus, quadrivalent, PF 04/13/2020 [facility] 12/22/2023 09:11:50 Tdap 11/28/2024 completed Not Available [facility] 04/08/2025 11:35:20 Influenza, MDCK, trivalent, PF 04/08/2025 completed Azucena Hartley [facility] 04/08/2025 11:51:16 Past Encounters Encounter ID Performer Location Encounter Start Date Encounter Closed Date Diagnosis/Indication Diagnosis SNOMED-CT Code Diagnosis ICD10 Code Diagnosis IMO Codes Diagnosis Note [id number] Raissa Dumas MD [address] [place] [address] 12/22/2023 08:54:45 12/22/2023 13:03:24 Adult health examination 109682610 Z00.00 R53.83 Z23 COVID:UTDT d: refusedFlu vaccine: UTDOpthalm ology: ReferredGY N: ReferredDe ntal: ReferredDe rm: Referred Blood work ordered. Patient agreed to STD testing including HIV. Venereal d isease screening 117571753 Z11.3 Pruritus of vulva 465797 00 L29.2 Depressive disorder 3548 9007 F32.A - follow up psychiatry and therapy- no Suicidal/h omicidal ideations- c/w current medication Skin lesion 39584203 L98 .9 [id number] MARIA DEL CARMEN LUNSFORD MD [address] [place] [address] 03/01/2025 09:10:52 03/05/2025 09:35:01 Depressive disorder 99175489 F32.A Will send refill and refer to psychiatri st Raissa Dumas MD [address] [place] [address] 04/08/2025 11:29:12 04/08/2025 15:54:07 Depressive disorder 53025848 F32.A - follow up psychiatry and therapy- no Suicidal/h omicidal ideations- c/w current medication Administra tion of influenza vaccine 68747090 Z23 flu vaccine administer ed without complicati ons, sterile dressing applied Adult heal th examination 420364273 Z00.00 R53.83 Z23 COVID: recommende dTd: UTDFlu vaccine: done todayOptha lmology: UTDGYN: UTDDental: UTDDerm: ReferredBl ood work ordered. Patient agreed to STD testing including HIV. Venereal d isease screening 344249433 Z11.3 Iron deficiency 03383702 E61.1 9881 Health Concerns Section Related Observation LastModified by Organization Detai ls LastModified Time None Recorded Concern Status LastModified by Organization Details LastModified Time None Recorded Advance Directives Directive None Recorded Payers Insurance Date Sequence Insurance Name Policy Number Policy Wyman Covered Member ID Wyman Member ID Guarantor Name 03/01/2025 1 [employer] [place]-BKN Agata Tony [id number] Agata Tony 04/05/2025 1 [employer] [place]SS[place] PLAN 2 [place] [id number] Agata Tony [id number] Agata Kaisla Notes Date Note Type Note Provider Name and Address Organization Details Recorded Time 12/22/2023 text/html presents for annual physical exam. Patient C/o Genital itchiness with thick odorless discharge Raissa Dumas MD [address] [place], [address], [facility] Providers 12/22/2023 09:46:55 03/01/2025 text/html ROS as noted in the HPI Pt was encountered for follow up by video call through [employer]. Pt is in [place]. Pt feels fine. She is calling for medication refill MARIA DEL CARMEN LUNSFORD MD [address] [place], [address], [facility] Providers 03/01/2025 20:24:03 04/08/2025 text/html presents for annual physical exam. Raissa Dumas MD [address] [place], [address], [facility] Providers 04/08/2025 11:46:52 OBGyn Episode No OBEpisode recorded.
--- OUTSIDE RECORDS SUMMARY | 2025-06-28 00:04 | XMS_ITS | Encounter Summary ---
Author Organization [facility] Address [address] [place] [phone] Phone Care Team Providers Care Intern Brand Name Role Phone Nicolás Dee Primary Care Provider Unavailabl e Reason for Visit * Reason Comments Medication Refill Encounter Details Date Type Department Care Team ([facility] Contact Info) Description 07/25/2021 Refill [facility] [address] [place] [id number] Gui Odell MD [address] [place] [address] [phone] Anxiety and depression Social History Tobacco Use [...] depression documented in this encounter Care Teams Intern Brand Relationship Specialty Start Date End Date Nicolás Dee DO PCP - General Family Medicine 10/26/19 documented as of this encounter
--- OUTSIDE RECORDS SUMMARY | 2025-06-28 00:04 | XMS_ITS | Encounter Summary ---
Author Organization [facility] Address [address] [place] [phone] Phone Care Team Providers Care Back Stayer Name Role Phone Nicolás Dee Primary Care Provider Unavailabl e Reason for Visit * Reason Comments Medication Refill Encounter Details Date Type Department Care Team ([facility] Contact Info) Description 11/27/2021 Refill [facility] [address] [place] [id number] Gui Odell MD [address] [place] [phone] Anxiety and depression Social History Tobacco Use [...] depression documented in this encounter Care Teams Back Stayer Relationship Specialty Start Date End Date Nicolás Dee DO PCP - General Family Medicine 10/26/19 documented as of this encounter
[2025-06-28 01:04] VITALS: BP 107/69; PULSE 94; RESP 16; TEMP 36.9; O2SAT 99
== END 2025-06-28 01:04 | disposition home or self-care (01) ==
PROVIDERS: Emergency Provider Emergency Medicine
DX: K52.9 Noninfective gastroenteritis and colitis, unspecified (principal); R11.2 Nausea with vomiting, unspecified; R25.2 Cramp and spasm; R11.0 Nausea; Z03.818 Encounter for observation for suspected exposure to other biological agents ruled out; Z79.899 Other long term (current) drug therapy
CPT/HCPCS: 36415; 80048; 80076; 83690; 85025; 87637; 96361; 96374; 96375; 99284; J1308; J2405